=== PATIENT | female | born 1960 | race Caucasian/White ===

== ENCOUNTER 2021-08-08 11:21 | Outpatient (REF) | payer MEDICAID, SELFPAY ==
[2021-08-08 13:49] LABS: MANUAL DIFF FLAG NO
[2021-08-08 13:51] LABS: Basophils Absolute Auto 0.1 X10*3/uL (0.0-0.2); Basophils Percent Auto 0.7 % (0-2); Eosinophils Absolute Auto 0.1 X10*3/uL (0.0-0.4); Eosinophils Percent Auto 1.7 % (0-4); Hematocrit 36.9 % (37.0-47.0); Hemoglobin 12.3 g/dl (12.0-16.0); Imm Gran Abs Auto 0.03 X10*3/uL (0.00-0.03); Imm Gran Pct Auto 0.4 % (0.0-0.4); Lymphocytes Absolute Auto 3.3 X10*3/uL (1.2-4.9); Lymphocytes Percent Auto 39.9 % (20-40); Mean Corpuscular HGB Conc 33.3 g/dl (31.0-35.0); Mean Corpuscular Hemoglobin 34.1 pg (27.0-33.0); Mean Corpuscular Volume 102.2 fL (80.0-98.0); Mean Platelet Volume 9.4 fL (9.4-12.3); Monocytes Absolute Auto 0.5 X10*3/uL (0.1-1.2); Monocytes Percent Auto 6.3 % (2-11); Neutrophils Absolute Auto 4.2 x10*3/uL (2.0-8.3); Platelet Count 405 X10*3/uL (160-400); Red Blood Count 3.61 X10*6/uL (4.20-5.50); Red Cell Distribution Width 13.1 % (11.0-16.0); White Blood Count 8.3 X10*3/uL (4.8-10.8)
[2021-08-08 14:36] LABS: Erythrocyte Sedimentation Rate 4 MM/HR (0-20)
[2021-08-08 14:48] LABS: Alanine Aminotransferase 19 U/L (0-31); Albumin Level 4.4 g/dL (3.5-5.0); Alkaline Phosphatase 48 U/L (39-117); Anion Gap 12 (12-20); Aspartate Amino Transferase 19 U/L (5-31); Bilirubin Total 0.3 mg/dL (0.0-1.0); Blood Urea Nitrogen 12 mg/dL (9-16); C Reactive Protein 0.07 mg/dL (< or = 0.50); Calcium 9.6 mg/dL (8.4-10.2); Carbon Dioxide 25 mmol/L (22-29); Chloride 106 mmol/L (96-108); Estimated Glomerular Filt Rate > 60; Glucose Random 84 mg/dL (60-115); Potassium 4.9 mmol/L (3.3-5.1); Sodium 138 mmol/L (135-145); Total Protein 7.1 g/dL (6.5-8.0)
[2021-08-08 14:58] LABS: Rheumatoid Factor < 15.0 IU/mL (<15.0)
[2021-08-08 15:11] LABS: Ferritin 113 ng/mL (10-250); Vitamin D 25-OH Total 46.4 ng/mL (>30)
[2021-08-08 15:16] LABS: Folate 15.7 ng/mL (> or = 4.0); Vitamin B12 1418 pg/mL (200-900)
[2021-08-10 12:41] LABS: Anti Nuclear Antibody Screen NEGATIVE (NEGATIVE)
[2021-08-10 16:36] LABS: Gliadin Deamidated IgA Ab <1.0 U/mL; Gliadin Deamidated IgG Ab <1.0 U/mL; Transglutaminase Ab IgG <1.0 U/mL; Transglutaminase IgA <1.0 U/mL
[2021-08-11 11:46] LABS: IgA 212 mg/dL (70-320); IgG 1056 mg/dL (600-1540); IgM 70 mg/dL (50-300)
[2021-08-11 17:02] LABS: Vitamin C 1.3 mg/dL (0.3-2.7)
[2021-08-12 00:01] LABS: Zinc 82 mcg/dL (60-130)
[2021-08-12 11:36] LABS: Nicotinamide 60 ng/mL; Vit B3 - Nicotinic Acid <20 ng/mL
[2021-08-12 13:17] LABS: Vitamin B6 43.6 ng/mL (2.1-21.7)
[2021-08-15 12:36] LABS: Vitamin K1 302 pg/mL (130-1500)
[2021-08-15 17:42] LABS: Histamine Plasma <1.5 ng/mL (< OR = 1.8)
[2021-08-16 18:01] LABS: Alpha-Tocopherol 13.7 mg/L (5.7-19.9); Beta-Gamma Tocopherol <1.0 mg/L (<=4.3); Vitamin A 62 mcg/dL (38-98)
== END 2021-08-08 11:22 | disposition home or self-care (01) ==
LOC: HO.LAB 11:21
PROVIDERS: PCP Nurse Practitioner; Visit Provider Internal Medicine Gastroenterology
DX: K56.609 Unspecified intestinal obstruction, unspecified as to partial versus complete obstruction (principal); M12.9 Arthropathy, unspecified; G89.29 Other chronic pain; R10.33 Periumbilical pain; R79.82 Elevated C-reactive protein (CRP); K75.81 Nonalcoholic steatohepatitis (NASH)
CPT/HCPCS: 36415; 80053; 82180; 82306; 82607; 82728; 82746; 82784; 83088; 83516; 83520; 84207; 84446; 84590; 84591; 84597; 84630; 85025; 85652; 86003; 86038; 86039; 86140; 86200; 86431; 99202

== ENCOUNTER 2021-08-09 09:06 | Outpatient (REF) | payer MEDICAID, SELFPAY ==
[2021-08-11 14:36] LABS: Cyclic Citrullinated Peptide <16 UNITS
[2021-08-16 15:06] LABS: Vitamin B5 (Pantothenic Acid) <40 ng/mL (<275)
== END 2021-08-09 09:07 | disposition home or self-care (01) ==
LOC: HO.LAB 09:06
PROVIDERS: Internal Medicine Gastroenterology; PCP Nurse Practitioner; Visit Provider Dentist Pediatric Dentistry
DX: K56.609 Unspecified intestinal obstruction, unspecified as to partial versus complete obstruction (principal); M12.9 Arthropathy, unspecified
CPT/HCPCS: 36415; 83520; 83993; 84591; 86200

== ENCOUNTER 2021-09-20 09:09 | Outpatient (REF) | payer MEDICAID, SELFPAY ==
--- NOTE | ~2021-09-20 | MR_ITS ---
EXAMINATION: MR PELVIS WITHOUT AND WITH CONTRAST MR ABDOMEN WITHOUT AND WITH CONTRAST CLINICAL INFORMATION: Unspecified intestinal obstruction. Abdominal pain. COMPARISON: Previous CT of the abdomen and pelvis January 2018. TECHNIQUE: Sagittal axial and coronal sequences through the abdomen and pelvis with and without IV contrast and following 1.5 L oral Breeza contrast. Patient received 5 mL intravenous gadolinium. FINDINGS: There is stool throughout the colon and mild dilatation of the colon down to the rectum suggestive of cysts severe constipation. No abnormal wall thickening or mass is seen. The appendix is not identified. The small bowel is unremarkable. The stomach is unremarkable. The lung bases are clear. The liver is normal in signal. The liver appears slightly enlarged. There are too small subcentimeter lesion in the right lobe of the liver. These are not seen on all sequences and difficult to characterize. These probably represent small cysts or hemangiomas. These appear similar to CT scan from 2018. This is similar to previous CT from 2018. There is a single artifact seen adjacent to the inferior left lobe of the liver near the falciform ligament. When compared with previous CT, this is likely related to signal artifact from surgical clip or coil. No other focal liver lesion is seen. The gallbladder is normal. There is no intra or extrahepatic biliary duct dilatation. The pancreas is normal. The spleen appears to have been removed. There is a small left upper quadrant splenule measuring 2 cm. The adrenal glands are unremarkable. There are multiple bilateral renal cysts. There are several complex cysts that are high signal on T1 weighted sequences probably representing complex cysts. Largest cyst measures 1 cm in the upper pole of the left kidney. No renal mass. No hydronephrosis. The bladder is not optimally distended. There are several uterine fibroids. The largest measures 2.5 x 3 cm in the right uterine body. The uterus and adnexa otherwise appear unremarkable. There is a pessary in the pelvis. No ascites or adenopathy is seen. Vascular structures are normal. No hernia is seen. There are degenerative changes of the spine. MR/MR abdomen wo/w con IMPRESSION: Distended colon and stool throughout the colon suggestive of constipation. The colon is dilated down to the rectum. No wall thickening or mass is seen. Pessary in the pelvis. Uterine fibroids. Multiple small renal cysts. Some appear to represent complex cysts. Probable small cysts or hemangiomas in the right lobe of the liver. This is similar to January 2018 exam.
== END 2021-09-20 09:10 | disposition home or self-care (01) ==
LOC: HO.MRI 09:09
PROVIDERS: Visit Provider Internal Medicine Gastroenterology
DX: K56.609 Unspecified intestinal obstruction, unspecified as to partial versus complete obstruction (principal); Q61.02 Congenital multiple renal cysts; D25.9 Leiomyoma of uterus, unspecified; Z96.0 Presence of urogenital implants
CPT/HCPCS: 72197; 74183; A9585

== ENCOUNTER 2021-12-08 08:26 | Outpatient (REF) | payer MEDICAID, SELFPAY ==
--- NOTE | ~2021-12-08 | US_ITS ---
EXAMINATION: US RETROPERITONEAL LIMITED (RENAL ONLY) CLINICAL INFORMATION: Cyst of kidney, complex on MRI. COMPARISON: MRI abdomen 09/20/2021. CT abdomen and pelvis 01/23/2018. TECHNIQUE: Real-time imaging of the kidneys. FINDINGS: RIGHT KIDNEY: 9.7 x 3.4 x 5.6 cm (SAG x AP x TRV). The kidney is normal in size, contour, and echogenicity. Renal cortical thickness is normal. No renal calculi or hydronephrosis. Multiple cysts redemonstrated, some with associated small amount of mural calcification. Largest cyst measures 1.0 cm in the mid pole. No solid masses. LEFT KIDNEY: 10.0 x 6.0 x 5.0 cm (SAG x AP x TRV). The kidney is normal in size, contour, and echogenicity. Renal cortical thickness is normal. No renal calculi or hydronephrosis. Multiple cysts redemonstrated, some with associated small amount of mural calcification. Largest cyst measures 1.4 cm in the mid pole. There is a heterogeneously hypoechoic structure within the midpole measuring 1.2 cm No solid masses. US/US renal BI IMPRESSION: * Multiple bilateral cysts containing mural calcification measuring up to 1.0 cm on the right and 1.4 cm on the left. * Complicated cyst measuring 1.2 cm within the left midpole. * These cysts correspond to nonenhancing structures seen on the previous MRI. * No solid masses.
== END 2021-12-08 08:27 | disposition home or self-care (01) ==
LOC: HO.US 08:26
PROVIDERS: Visit Provider Internal Medicine Gastroenterology
DX: N28.1 Cyst of kidney, acquired (principal)
CPT/HCPCS: 76775

== ENCOUNTER → 2021-12-12 08:37 | Outpatient (BNVA) | payer MEDICAID, SELFPAY | PROVIDERS: PCP Nurse Practitioner; Visit Provider Internal Medicine Gastroenterology | DX: Z13.89 Encounter for screening for other disorder (principal) ==

== ENCOUNTER 2022-10-05 11:28 | Day surgery (SDC) | payer MEDICAID, SELFPAY ==
[2022-10-05] MEDS: Lactated Ringers 1,000 ML 50 ML IVCONT (11:38)
[2022-10-05 12:02] VITALS: BP 138/83; PULSE 78; RESP 18; TEMP 36.8; O2SAT 98
--- NOTE | 2022-10-05 12:11 | HO.ANESPROP2 ---
HPI - Anesthesia Eval Consult details Narrative: 62 F for EGD and colonoscopy DJD , tremors PMFSH Active Problems Active Problems: All Active Problems (Updated 10/02/22 @ 09:06 by Licha Fisher RN) Arthropathy (Acute) Kidney cysts (Acute) Small bowel obstruction (Acute) Past Medical History Medical History Adenomatous colon polyp Carpal tunnel syndrome Cervical spondylolysis Depressive disorder Edema Hyperthyroidism Neck pain Pelvic floor dysfunction Renal cyst Small bowel obstruction Tinnitus Tremor Unspecified intestinal obstruction, unspecified as to partial versus complete obstruction Vaginal dryness Functional capacity: independent ambulation Family History Family History Mother Muscular degeneration Skin cancer Thyroid cancer Aneurysm Sister HTN (hypertension) Thyroid disease Father Endocarditis Malignant carcinoid tumor of lung Family history of problems with anesthesia: No Surgical History Surgical History H/O abdominal surgery H/O splenectomy History of carpal tunnel surgery Hx of appendectomy Hx of colonoscopy History of Problems with Anesthesia: No Social History Social History Patient Tobacco Use Status: Never used Tobacco Meds Allergies Allergy/AdvReac Type Severity Reaction Status Date / Time codeine Allergy Mild anxiety, Verified 10/05/22 11:38 itch propoxyphene [From Darvon] Allergy Mild Itching Verified 10/05/22 11:38 Benadryl Allergy Mild anxiety, Uncoded 10/05/22 11:38 itch Active Medications: Current Medications Lactated Ringer's (Lr) 1,000 mls @ 50 mls/hr IVCONT .Q20H JAI Last Admin: 10/05/22 11:38 Dose: 50 mls/hr Home Medications Medication Instructions Recorded Confirmed Last Taken Type butalbital 50 mg-acetaminophen 325 1 cap PO Q4H PRN Migraine Headache 08/04/21 10/02/22 Unknown History mg-caffeine 40 mg-codeine 30 mg cap calcium carbonate 600 mg calcium 600 mg PO DAILY 08/04/21 10/02/22 Unknown History (1,500 mg) tablet cyanocobalamin (vitamin B-12) 5,000 mcg PO DAILY 08/04/21 10/02/22 Unknown History 5,000 mcg capsule estradiol 10 mcg vaginal tablet 10 mcg vaginal 4XW 08/04/21 10/02/22 Unknown History (Yuvafem) famotidine 20 mg tablet 20 mg PO BID 08/04/21 10/02/22 Unknown History fexofenadine 180 mg tablet 180 mg PO DAILY 08/04/21 10/02/22 Unknown History (Akila Allergy) indomethacin 50 mg capsule 50 mg PO BID 08/04/21 10/02/22 Unknown History levothyroxine 75 mcg capsule 75 mcg PO DAILY 08/04/21 10/02/22 Unknown History montelukast 10 mg tablet 10 mg PO DAILY 08/04/21 10/02/22 Unknown History omega-3 fatty acids 1,000 mg 1,000 mg PO DAILY 08/04/21 Unknown History capsule (Fish Oil Concentrate) quetiapine 50 mg tablet 50 mg PO BEDTIME 08/04/21 10/02/22 Unknown History clonazepam 0.5 mg tablet 3 mg PO TID 08/08/21 10/02/22 Unknown History oxycodone-acetaminophen 5 mg-325 1 tab PO Q4H PRN Pain 08/08/21 10/02/22 10/05/22 History mg tablet bupropion HCl 300 mg 24 hr tablet, 300 mg PO QAM 12/12/21 10/02/22 10/05/22 History extended release modafinil 200 mg tablet 200 mg PO DAILY 10/02/22 10/02/22 Unknown History Exam Exam Date and Time: October 05, 2022 121 Height,Weight and Vital Signs: Height 5 ft 4 in Weight 53.07 kg Last Vital Signs Temp 98.3 F 10/05/22 12:02 Pulse 78 10/05/22 12:02 Resp 18 10/05/22 12:02 BP 138/83 10/05/22 12:02 Pulse Ox 98 10/05/22 12:02 O2 Del Method 10/05/22 12:02 Airway Mallampati Class: III TM Dist: >3cm Neck ROM: Full Loose/Missing/Broken Teeth: Yes Heart: S1,S2 Lungs: b/l breath sounds Assessment and Plan Assessment Anesthesia Assessment: Anesthesia Plan Discussed and Chart Reviewed Final Anesthetic Review Family History of Problems with Anesthesia: No History of Problems with Anesthesia: No NPO: Yes ASA Class: II Final Preanesthetic Review: Meds/Allgs Chart Reviewed, Consent Obtained/Reviewed and Anes Risks/Benef Reviewed Patient Risk: Intermediate Procedure Risk: Intermediate Anesthetic Plan Anesthetic Plan: MAC: Disposition: Standard PACU
--- NOTE | 2022-10-05 12:16 | MHC.SHP ---
Pre-Procedural Eval Section A Date of Service: 10/05/22 Section B Chief Complaint: anemia Relevant Family History (Specify if Yes): No Relevant Social History: None Present Medications: see Short Stay Collaborative assessment Medical History: Significant History (Adenomatous colon polyp Carpal tunnel syndrome Cervical spondylolysis Depressive disorder Edema Hyperthyroidism Neck pain Pelvic floor dysfunction Renal cyst Small bowel obstruction Tinnitus Tremor Unspecified intestinal obstruction, unspecified as to partial versus complete obstruction Vaginal dryn) History of Previous Operations: Relevant previous surgery/procedure and date(s) (H/O abdominal surgery H/O splenectomy History of carpal tunnel surgery Hx of appendectomy Hx of colonoscopy) Allergies: Allergies Allergy/AdvReac Type Severity Reaction Status Date / Time codeine Allergy Mild anxiety, Verified 10/05/22 11:38 itch propoxyphene [From Darvon] Allergy Mild Itching Verified 10/05/22 11:38 Benadryl Allergy Mild anxiety, Uncoded 10/05/22 11:38 itch Review of Systems Sugical H&P ROS: Negative: Constitution, Cardiovascular, Respiratory, Neurological, Psychiatric, Hem-Onc, Allergic/Immunologic, Gastrointestinal, Genitourinary, Musculoskeletal, Integumentary, Endocrine and Eyes/Ears/Nose/Throat Exam Surgical H&P Exam: Normal: HEENT, Normal: Heart, Normal: Lungs, Normal: Extremities, Normal: Abdomen, Normal: Skin and Normal: Neurological Plan Diagnosis/Plan: Unchanged I have reviewed the history and physical and performed a pertinent physical examination on my patient. No changes have occurred unless specified. Time Spent With Patient Time: Total time managing care of this patient today ____ minutes.
--- NOTE | 2022-10-05 12:17 | W.PM.OPN ---
Operative Note Operative Note Date of Service: 10/05/22 Narrative: Operative Information Procedure Description: EGD, Colonoscopy Indication: anemia Anesthesia: MAC FLEXIBLE TRANSORAL UPPER GASTROINTESTINAL ENDOSCOPY AND COLONOSCOPY PROCEDURE NOTE UPPER ENDOSCOPY Consent: Indications for the procedure and potential complications of bleeding, perforation, reaction to medications and missed diagnosis were discussed with the patient and informed consent was obtained. Instrument: Olympus GIF H 190 J mid size upper endoscope Monitoring: Vital signs and clinical assessment, continuous EKG monitoring, Pulse oximetry, Carbon Dioxide monitoring and blood pressure monitoring were done throughout the procedure. Procedure: The patient was placed in the left lateral decubitis position and pre-procedure medications were administered and a bite block was placed. The endoscope was inserted into the mouth and advanced under direct vision to the third part of duodenum. A careful inspection was made as the upper endoscope was withdrawn including a retroflexed examination of the proximal stomach; Findings and interventions are described below. Findings: Larynx:normal Esophagus: GE junction at 40 cm, diaphragm hiatus at 40 cm, esophagitis noted with patchy salmon pink areas, bx taken for r/o barretts. Also LES was lax. Stomach: Patchy gastritis with flecks of blood in stomach. Biopsies were obtained. Grade 2 flap valve on retroflexed examination of the cardia. Duodenum: Normal bulb and descending duodenum, bx taken Intervention: Biopsies as noted above COLONOSCOPY Instrument: Olympus variable stiffness pediatric scope 190L Colonoscopy Monitoring: Vital signs and clinical assessment, continuous EKG monitoring, Pulse oximetry, Carbon Dioxide monitoring and blood pressure monitoring were done throughout the procedure. Colon withdrawal time was 11 minutes. Procedure: The patient was placed in the left lateral decubitis position and pre-procedure medications were administered. After a digital rectal examination of the ano-rectum, the video colonoscope was inserted into the rectum and advanced through the colon to the cecum/TI. The colonoscope was slowly withdrawn in a retrograde panoramic fashion and the colon mucosa was carefully examined including a retroflexed view of the rectum. Findings and interventions are described below. Procedure Difficulty:moderate due to redundant tortuous colon Findings: Terminal Ileum-normal, bx taken random colon bx taken Cecum:normal Ascending Colon: normal Transverse Colon -normal Descending Colon:normal Sigmoid Colon: small scattered diverticula noted Rectum: Retroflexion with small internal hemorrhoids, grade I Anorectum - normal Colon preparation: [place] Bowel Preparation Scale Right colon; 3 Transverse colon: 3 Left colon; 3 (0 = Unprepared colon segment with mucosa not seen due to solid stool that cannot be cleared. 1 = Portion of mucosa of the colon segment seen, but other areas of the colon segment not well seen due to staining, residual stool and/or opaque liquid. 2 = Minor amount of residual staining, small fragments of stool and/or opaque liquid, but mucosa of colon segment seen well. 3 = Entire mucosa of colon segment seen well with no residual staining, small fragments of stool or opaque liquid) Impression and Post Procedure Diagnosis: Endoscopy Findings: esophagitis lax LES possible barretts gastritis Colonoscopy Findings: internal hemorrhoids diverticular disease redundant, tortuous colon Plan: Await Pathology results Repeat Colonoscopy in 10 years or earlier if clinically indicated High fiber diet leaflet avoid straining at stool, epsom salts and sitz bath, anusol supps or cream GERD precautions if EGD pos for barretts then repeat EGD in 3-5 yrs Above findings were reviewed with the patient and relevant handouts were provided if indicated.
[2022-10-05 13:23] VITALS: BP 129/66; PULSE 90; RESP 12; TEMP 36.3; O2SAT 98
[2022-10-05 13:38] VITALS: BP 128/78; PULSE 78; RESP 16; O2SAT 98
[2022-10-05 13:53] VITALS: BP 142/75; PULSE 82; RESP 18; TEMP 36.7; O2SAT 100
[2022-10-05 14:08] VITALS: BP 134/73; PULSE 79; RESP 20; TEMP 37; O2SAT 100
== END 2022-10-05 14:46 ==
LOC: HO.SSS 11:28
PROVIDERS: PCP Nurse Practitioner; Visit Provider Internal Medicine Gastroenterology
PROC: (CPT 45380; principal; 2022-10-05 12:40)
DX: D64.9 Anemia, unspecified (principal); Z86.010 Personal history of colon polyps; K57.30 Diverticulosis of large intestine without perforation or abscess without bleeding; K64.0 First degree hemorrhoids; K56.609 Unspecified intestinal obstruction, unspecified as to partial versus complete obstruction; K59.00 Constipation, unspecified; Q43.8 Other specified congenital malformations of intestine; K29.51 Unspecified chronic gastritis with bleeding; K20.80 Other esophagitis without bleeding; K22.4 Dyskinesia of esophagus; K44.9 Diaphragmatic hernia without obstruction or gangrene; N28.1 Cyst of kidney, acquired; E05.90 Thyrotoxicosis, unspecified without thyrotoxic crisis or storm; D75.89 Other specified diseases of blood and blood-forming organs; R60.9 Edema, unspecified; Z90.81 Acquired absence of spleen; F32.A Depression, unspecified; R25.1 Tremor, unspecified; Z79.899 Other long term (current) drug therapy; Z88.8 Allergy status to other drugs, medicaments and biological substances; Z98.890 Other specified postprocedural states
CPT/HCPCS: 45380; 43239; 88305; 88313; 88341; 88342

== ENCOUNTER → 2022-10-20 10:08 | Outpatient (BNVA) | payer MEDICAID, SELFPAY | PROVIDERS: PCP Nurse Practitioner; Visit Provider Internal Medicine Gastroenterology | DX: R79.82 Elevated C-reactive protein (CRP) (principal); M12.9 Arthropathy, unspecified | CPT/HCPCS: 99212 ==

== ENCOUNTER 2023-03-12 08:18 | Outpatient (AMB) | payer MEDICAID, SELFPAY ==
--- NOTE | 2023-03-12 08:22 | A.OFFVIS_ITS ---
Intake Vital Signs 03/12/23 08:23 Height 5 ft 4 in Weight 114 lb 13.773 oz BMI 19.7 BP 130/74 Blood Pressure Location Rt brachial Position Sitting Pulse 82 Pulse Source Pulse Oximeter Temp 97.4 F Pulse Oximetry (%) 98 Intake Visit Reasons: Arthrophy ? RA Intake Note: * New pt presents today for consult. * States she saw Rheum for the first time in 2006 in [place]. She has no records, and states there was nothing significant * Today she has labs done recently at [facility], to discuss with MD. 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 She thinks for about 25 years she has had intermittent aches and pains throughout her body. These seemingly have worsened in the last year with some deformities in the hands and pain in the toes. She has a history of Hodgkin's disease treated 25 years ago or so with MOPP chemotherapy. 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 There has been no recurrence since then. She is on 8 Percocet a day, she has sometime able to get down to 6 a day. Mostly she takes the Percocet for back pain. Others areas of pain include the neck, thumbs, knuckles, knees, and feet. She notes her right 3rd toe is particularly painful over the past 3 months. She has a history of recurrent small-bowel obstructions so hesitates to take any NSAIDs. In the past indomethacin caused GI problems. She has had repeated problems with the small bowel obstruction, somewhat better recently with the addition of Movantik to her regimen. She has tried some topical agents, she thinks maybe diclofenac gel was helpful but she was worried about it interfering with her GI problems. She may also have lost coverage she says on her insurance. [facility], [facility] Medical History (Updated 03/12/23 @ 09:31 by Emir Mittal MD) Adenomatous colon polyp Carpal tunnel syndrome Cervical spondylolysis Depressive disorder Edema Hyperthyroidism Neck pain Pelvic floor dysfunction Renal cyst Small bowel obstruction Tinnitus Tremor Unspecified intestinal obstruction, unspecified as to partial versus complete obstruction Vaginal dryness Surgical History H/O abdominal surgery H/O splenectomy History of carpal tunnel surgery History of esophagogastroduodenoscopy (EGD) Hx of appendectomy Hx of colonoscopy Family History Mother Muscular degeneration Skin cancer Thyroid cancer Aneurysm Sister HTN (hypertension) Thyroid disease Father Endocarditis Malignant carcinoid tumor of lung Social History (Updated 03/12/23 @ 08:30 by BULMARO Garcia) Household Members: None Alcohol intake: current Alcohol intake frequency: holidays/special occasions only Patient Tobacco Use Status: Former Tobacco user Current occupational status: employed 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 Negative for appetite change, weight change, fever, chills, malaise Eyes Details: Some ocular dryness, uses some [id number] eyedrops. Negative for vision change, dry eyes,headaches and dizziness ENT Details: Some oral dryness. Occasional tinnitus. Negative for hearing change, tinnitus, oral ulcer, nose bleeds. Card Details: Negative chest pain, edema and syncope Resp Details: Negative for SOB, cough and wheezing GI Details: History of recurrent small-bowel obstructions. Presently negative for indigestion/heartburn, nausea, abdominal pain, bowel changes, diarrhea, constipation and bloody stool. Details: Negative for dysuria, hematuria, nocturia, decreased force/flow and genital discharge Skin/Breast Details: For about a year she does note some blanching of the fingertips when she is cold. No fingertip ulcerations. Negative for itching, rash, hives,, sun sensitivity, and skin cancer Neuro Details: Negative for epilepsy, palsy, stroke, changes in speech, tingling and weakness Psych Details: On meds for PTSD; symptoms seem stable with current treatment. Endo Details: Negative for polyuria and polydypsia Javy/Lymph Details: Distant history of treatment for Hodgkin's lymphoma MOPP. Negative for excessive bruising or bleeding. Physical Exam Vital Signs: Last Vital Signs Temp 97.4 F 03/12/23 08:23 Pulse 82 03/12/23 08:23 BP 130/74 03/12/23 08:23 Pulse Ox 98 03/12/23 08:23 BMI result Body Mass Index 19.7 APPEARANCE: Patient in no acute distress EYES no redness, pupils equal and reactive to light, eyelids normal EARS: External ear normal, canal clear and tympanic membrane normal. NOSE/SINUS: Airflow through both nares, no nasal discharge, no bleeding THROAT: Oral mucosa moist, no ulcerations NECK: No thyromegaly or masses, no adenopathy, trachea midline. HEART: Regulrar rhythm, S1-S2 heard, no murmurs, rubs or gallops. LUNG: Clear to percussion and auscultation ABD: Normal bowel sounds, no organomegaly, masses or tenderness. EXTREMITIES: No edema, no calf tenderness, normal peripheral pulses. NEURO: Oriented and alert x3. No focal weakness. Reflexes symmetric. Gait normal. SKIN: No inflammatory or neoplastic lesions. Normal color and turgor JOINT EXAM:?? Cervical Spine:.? Lateral flexion limited at 10 degrees and rotation limited at 30 degrees with some stiffness and pain. No tenderness. Thoracic Spine:.? No scoliosis.? No tenderness on palpation. Lumbar Spine:.? Alignment normal.? Full range of motion with mild pain at the extremes. No tenderness. Chest Wall:.? No tenderness, swelling, increased warmth or erythema. Hands she right: There is moderate bony enlargement with slight tenderness at the base of the thumb. There is some soft tissue swelling and tenderness at the 2nd MCP joint. There is bony enlargement of the 2nd through 5th PIP joints, the 3rd and 4th are slightly tender. The 5th there is more marked tenderness but it is not red or warm. The PIP's not really have any soft tissue swelling. All the DIP's have bony enlargement and the 2nd 5th are mildly tender. There is some thenar atrophy but no sensory loss. Left: Moderate bony enlargement and mild tenderness at the base of the thumb. There is no tenderness or swelling in the MCP joints. There is mild bony enlargement at the thumb IP and 2nd PIP joint, the 2nd PIP has mild tenderness. There is mild bony enlargement and flexion deformity at the 2nd through 5th D IP joints, the 2nd 3rd have mild tenderness. There is some thenar atrophy but no sensory loss. Wrists:.? Normal pain-free range of motion without tenderness, swelling, increased warmth or erythema. Elbows:. Normal pain-free range of motion without tenderness, swelling, increased warmth or erythema. Shoulders:.?? Full range of motion without pain. No tenderness, weakness, swelling, increased warmth or erythema. Hips:.? Right: Slight lateral and anterior pain with extremes of internal rotation. External rotation and abduction seem normal. There is also some lower back pain with extremes of rotation. Left: Some lumbar pain with extremes of normal internal or external rotation. No groin pain with motion. Hip bursa: Mild trochanteric tenderness. Knees:.?? Normal pain-free range of motion with mild patellofemoral crepitus. No effusion, tenderness, swelling, increased warmth or erythema.? Ankles:.? Normal pain-free range of motion without tenderness, swelling, increased warmth or erythema. Feet: Right: There is some nontender bony enlargement in the medial instep. The 1st MTP has mild bony enlargement, slight hallux valgus deformity and slight tenderness. The 3rd and 4th toes have hammertoe deformities. The 3rd has some redness, thickening and mild tenderness. There is no break in the skin. There is no sensory loss in the foot. Left: Mild 1st MTP bony enlargement, hallux valgus deformity and tenderness. The rest the foot has no tenderness or swelling. No sensory loss or breaks in the skin noted. Tender points:.? Mild tenderness to digital palpation at the trapezius, second rib, knees, greater trochanter al area bilaterally. ? Results Reviewed Results Reviewed: Laboratory Tests 08/08/21 08/08/21 13:46 13:46 Hgb 12.3 AST 19 ALT 19 C-Reactive Protein 0.24 October 2022 lab work from [facility]: Rheumatoid factor positive, question titer; SHWETA negative; ESR 0,; CRP 0.7, transaminases normal, CBC normal, TSH 0.36 Assessment & Plan Assessment & Plan (1) Multiple joint pain: Code(s): M25.50 - Pain in unspecified joint (2) History of Hodgkin's granuloma: Comment: MOPP in 1964 Code(s): Z85.71 - Personal history of Hodgkin lymphoma (3) Rheumatoid factor positive: Code(s): R76.8 - Other specified abnormal immunological findings in serum (4) Osteoarthritis of hands, bilateral: Code(s): M19.041 - Primary osteoarthritis, right hand; M19.042 - Primary osteoarthritis, left hand (5) Osteoarthritis of foot: Code(s): M19.079 - Primary osteoarthritis, unspecified ankle and foot Plan The patient has many years of widespread pains that she seemed to tolerate. The exception of that was the back pain which required Percocet for pain control and now she is on 8 tablets a day. In the last year she has noted change in her symptoms with more deformity in the hands and some pain in the toes. She has a number of tender points. The only questionably swollen joint I can see today is the right 2nd MCP. Right 3rd toe might have been injured. She did have a history of Hodgkin's disease treated with chemotherapy 25 years ago. It is possible some of the chemotherapy agents might cause some neuropathy but her pains really suggest more fibromyalgia and osteoarthritis at this point. I will recheck the rheumatoid factor to see if we can get a titer on that. Also CCP antibody, repeat acute phase reactants, and hand and foot films are ordered. I think she could safely add back the diclofenac gel. Oral NSAIDs would be problematic. She is aware that the narcotics may be contributing somewhat to her motility problems. I will review the data and let her know the fingings. I will also decide on follow-up that point but likely it will be a recommendation for return in 6-9 months to see if findings progressing in the hands that would look inflammatory in etiology. Orders: Orders XR foot LT min 3V Today M19.079 - Primary osteoarthritis, unspecified ankle and foot XR foot RT min 3V Today M79.671 - Pain in right foot, M79.672 - Pain in left foot XR hand LT min 3V Today M19.041 - Primary osteoarthritis, right hand, M19.042 - Primary osteoarthritis, left hand, R76.8 - Other specified abnormal immunological findings in serum XR hand RT min 3V Today M19.041 - Primary osteoarthritis, right hand, M19.042 - Primary osteoarthritis, left hand, R76.8 - Other specified abnormal immunological findings in serum Cyclic Citrullinated Peptide Today M19.041 - Primary osteoarthritis, right hand, M19.042 - Primary osteoarthritis, left hand, R76.8 - Other specified abnormal immunological findings in serum C Reactive Protein Today M19.041 - Primary osteoarthritis, right hand, M19.042 - Primary osteoarthritis, left hand, R76.8 - Other specified abnormal immunological findings in serum Rheumatoid Factor Today M19.041 - Primary osteoarthritis, right hand, M19.042 - Primary osteoarthritis, left hand, R76.8 - Other specified abnormal immunological findings in serum Erythrocyte Sedimentation Rate Today M19.041 - Primary osteoarthritis, right hand, M19.042 - Primary osteoarthritis, left hand, R76.8 - Other specified abnormal immunological findings in serum Sjogren's Antibodies Today M12.9 - Arthropathy, unspecified, R76.8 - Other specified abnormal immunological findings in serum Coding Level of Care Code New Pt Level 3 (81691) Diagnoses Multiple joint pain M25.50 History of Hodgkin's granuloma Z85.71 Rheumatoid factor positive R76.8 Osteoarthritis of hands, bilateral M19.041; M19.042 Osteoarthritis of foot M19.079
[2023-03-12 08:23] VITALS: BP 130/74; PULSE 82; TEMP 36.3; O2SAT 98; BMI 19.7
== END 2023-03-12 09:39 | disposition home or self-care (01) ==
PROVIDERS: PCP Nurse Practitioner; Referring Provider Nurse Practitioner; Visit Provider Internal Medicine Rheumatology
DX: M25.50 Pain in unspecified joint (principal); Z85.71 Personal history of Hodgkin lymphoma; R76.8 Other specified abnormal immunological findings in serum; M19.041 Primary osteoarthritis, right hand; M19.042 Primary osteoarthritis, left hand; M19.079 Primary osteoarthritis, unspecified ankle and foot
CPT/HCPCS: 99203

== ENCOUNTER → 2023-03-12 08:18 | Outpatient (BNVA) | payer MEDICAID, SELFPAY | PROVIDERS: PCP Nurse Practitioner; Visit Provider Internal Medicine Rheumatology | DX: M25.50 Pain in unspecified joint (principal); M19.041 Primary osteoarthritis, right hand; M19.042 Primary osteoarthritis, left hand; M19.079 Primary osteoarthritis, unspecified ankle and foot; R76.8 Other specified abnormal immunological findings in serum; Z85.71 Personal history of Hodgkin lymphoma | CPT/HCPCS: 99202 ==

== ENCOUNTER 2023-03-13 07:36 | Outpatient (REF) | payer MEDICAID, SELFPAY ==
--- NOTE | ~2023-03-13 | XR_ITS ---
EXAMINATION: XR FOOT, BILATERAL XR HAND, BILATERAL CLINICAL INDICATION: Primary osteoarthritis. COMPARISON: None available. TECHNIQUE: 3 views each foot and 3 views each hand. FINDINGS: BILATERAL FOOT: There is no visible fracture, dislocation or subluxation. The joint spaces are maintained. No bony erosive changes or osteophytes. The soft tissues are normal. The ankle mortise and subtalar joints are normal. RIGHT HAND: There is mild loss of PIP and DIP joint spaces with periarticular spurring PIP joint 1st digit and DIP joint 3rd, 4th, and 5th digits. There is mild flexion deformity DIP joint 3rd digit. The MCP joints are preserved. There is loss of 1st carpometacarpal joint with periarticular spurring. No acute fracture or osteoporosis seen. LEFT HAND: Mild loss of PIP and DIP joints all digits is noted with mild periapical spurring. No visible acute fracture, dislocation or subluxation seen. There is moderate loss of 1st carpometacarpal joint space. The soft tissues are normal. XR/XR foot LT min 3V IMPRESSION: 1. Significant degenerative osteoarthritic changes PIP and DIP joints both hands. There is mild flexion deformity DIP joint 3rd digit right hand. 2. There is moderate loss of 1st carpometacarpal joint space both hands. 3. No abnormality seen in either foot.
--- NOTE | ~2023-03-13 | XR_ITS ---
EXAMINATION: XR FOOT, BILATERAL XR HAND, BILATERAL CLINICAL INDICATION: Primary osteoarthritis. COMPARISON: None available. TECHNIQUE: 3 views each foot and 3 views each hand. FINDINGS: BILATERAL FOOT: There is no visible fracture, dislocation or subluxation. The joint spaces are maintained. No bony erosive changes or osteophytes. The soft tissues are normal. The ankle mortise and subtalar joints are normal. RIGHT HAND: There is mild loss of PIP and DIP joint spaces with periarticular spurring PIP joint 1st digit and DIP joint 3rd, 4th, and 5th digits. There is mild flexion deformity DIP joint 3rd digit. The MCP joints are preserved. There is loss of 1st carpometacarpal joint with periarticular spurring. No acute fracture or osteoporosis seen. LEFT HAND: Mild loss of PIP and DIP joints all digits is noted with mild periapical spurring. No visible acute fracture, dislocation or subluxation seen. There is moderate loss of 1st carpometacarpal joint space. The soft tissues are normal. XR/XR foot RT min 3V IMPRESSION: 1. Significant degenerative osteoarthritic changes PIP and DIP joints both hands. There is mild flexion deformity DIP joint 3rd digit right hand. 2. There is moderate loss of 1st carpometacarpal joint space both hands. 3. No abnormality seen in either foot.
--- NOTE | ~2023-03-13 | XR_ITS ---
EXAMINATION: XR FOOT, BILATERAL XR HAND, BILATERAL CLINICAL INDICATION: Primary osteoarthritis. COMPARISON: None available. TECHNIQUE: 3 views each foot and 3 views each hand. FINDINGS: BILATERAL FOOT: There is no visible fracture, dislocation or subluxation. The joint spaces are maintained. No bony erosive changes or osteophytes. The soft tissues are normal. The ankle mortise and subtalar joints are normal. RIGHT HAND: There is mild loss of PIP and DIP joint spaces with periarticular spurring PIP joint 1st digit and DIP joint 3rd, 4th, and 5th digits. There is mild flexion deformity DIP joint 3rd digit. The MCP joints are preserved. There is loss of 1st carpometacarpal joint with periarticular spurring. No acute fracture or osteoporosis seen. LEFT HAND: Mild loss of PIP and DIP joints all digits is noted with mild periapical spurring. No visible acute fracture, dislocation or subluxation seen. There is moderate loss of 1st carpometacarpal joint space. The soft tissues are normal. XR/XR hand RT min 3V IMPRESSION: 1. Significant degenerative osteoarthritic changes PIP and DIP joints both hands. There is mild flexion deformity DIP joint 3rd digit right hand. 2. There is moderate loss of 1st carpometacarpal joint space both hands. 3. No abnormality seen in either foot.
--- NOTE | ~2023-03-13 | XR_ITS ---
EXAMINATION: XR FOOT, BILATERAL XR HAND, BILATERAL CLINICAL INDICATION: Primary osteoarthritis. COMPARISON: None available. TECHNIQUE: 3 views each foot and 3 views each hand. FINDINGS: BILATERAL FOOT: There is no visible fracture, dislocation or subluxation. The joint spaces are maintained. No bony erosive changes or osteophytes. The soft tissues are normal. The ankle mortise and subtalar joints are normal. RIGHT HAND: There is mild loss of PIP and DIP joint spaces with periarticular spurring PIP joint 1st digit and DIP joint 3rd, 4th, and 5th digits. There is mild flexion deformity DIP joint 3rd digit. The MCP joints are preserved. There is loss of 1st carpometacarpal joint with periarticular spurring. No acute fracture or osteoporosis seen. LEFT HAND: Mild loss of PIP and DIP joints all digits is noted with mild periapical spurring. No visible acute fracture, dislocation or subluxation seen. There is moderate loss of 1st carpometacarpal joint space. The soft tissues are normal. XR/XR hand LT min 3V IMPRESSION: 1. Significant degenerative osteoarthritic changes PIP and DIP joints both hands. There is mild flexion deformity DIP joint 3rd digit right hand. 2. There is moderate loss of 1st carpometacarpal joint space both hands. 3. No abnormality seen in either foot.
[2023-03-13 08:39] LABS: C Reactive Protein < 0.10 mg/dL (< or = 0.50)
[2023-03-13 08:52] LABS: Erythrocyte Sedimentation Rate 2 MM/HR (0-20)
[2023-03-13 14:50] LABS: Rheumatoid Factor < 13.0 IU/mL (<15.0)
[2023-03-15 13:29] LABS: Antibody to SS-A Antigen <1.0 NEG AI (<1.0 NEG); Antibody to SS-B Antigen <1.0 NEG AI (<1.0 NEG)
[2023-03-19 15:08] LABS: Cyclic Citrullinated Peptide <16 UNITS
== END 2023-03-13 07:37 | disposition home or self-care (01) ==
LOC: HO.LAB 07:36
PROVIDERS: PCP Nurse Practitioner; Visit Provider Internal Medicine Rheumatology
DX: R76.8 Other specified abnormal immunological findings in serum (principal); M19.041 Primary osteoarthritis, right hand; M19.042 Primary osteoarthritis, left hand; M79.671 Pain in right foot; M79.672 Pain in left foot
CPT/HCPCS: 36415; 73130; 73630; 85652; 86140; 86200; 86235; 86431

== ENCOUNTER 2023-07-20 10:04 | Outpatient (AMB) | payer SELFPAY ==
--- NOTE | 2023-07-20 10:09 | MHC.OFFVIS ---
Intake Vital Signs 07/20/23 10:10 Height 5 ft 4 in Weight 117 lb BMI 20.1 BP 108/61 Blood Pressure Location Rt brachial Position Sitting Pulse 71 Intake Visit Reasons: Follow up Intake Note: Isaura presents in the office as a follow up constipation and GERD. CC: Patient reports severe burning in her stomach and low level acid indigestion pretty constantly. She reports mild nausea, constipation, bloating and gas at night after eating. 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 Accompanied by: Self / Same As Patient Allergies codeine Allergy (Mild, Verified 07/20/23 10:14) anxiety, itch acetaminophen [From Darvocet-N] Adverse Reaction (Severe, Verified 07/20/23 10:14) Anxiety propoxyphene [From Darvocet-N] Adverse Reaction (Severe, Verified 07/20/23 10:14) Anxiety Benadryl Allergy (Mild, Uncoded 03/12/23 08:27) anxiety, itch HPI Follow up HPI Details 62 yr old f w/ hx of PTSd, hypothyroid, Hodgkins lymphoma, splenectomy being seen for f/u RECAP: She has had recurrent small bowel obstructions she had been getting more frequent attacks at least once/year, had been every 3 yrs before niya last 5 yrs ago she had surgery with insertion of film adhesion barrier Before attacks she will normally have a large bowel motion, and nausea, with seizing pain in the back and into the front Usu resolves with fluids and NGT she does have problems with constipation, she takes veg and greens in diet, miralax OD she does get bloating and distention for days to months she does take pepcid for reflux, never awful - 12/27 she takes percocet 40 mg daily she has blotchy skin and brain fog, flushing no raynauds but hands and feet always cold LABS: macrocytosis, fecal bess--borderline, B12 level was normal MRe: constipation, dilated colon down to rectum, uterine fibroids, multiple renal cysts, some complex. liver cysts US: ?Multiple bilateral cysts containing mural calcification measuring up to 1.0 cm on the right and 1.4 cm on the left. *? Complicated cyst measuring 1.2 cm within the left midpole. EGD/Colon : 09/2022 Endoscopy Findings: esophagitis lax LES possible barretts gastritis Colonoscopy Findings: internal hemorrhoids diverticular disease redundant, tortuous colon Bx: pos barretts, high mast cells in TI and colon, IgG4 <40% INTERIM: she noted worsening back in her back with wine appetite is fair weight stable gas and bloating and GERD are worse --she can have burning pain in pit of stomach she has not required admission for obstruction for 2 yrs now if she runs out of [employer] she can have severe pain, she is getting it from her PCP coming down on pain meds she stopped protonix, and only taking pepcid EXAM: GENERAL: The patient is well developed and nontoxic. VITAL SIGNS:see workflow HEENT: Nonicteric sclerae, PERRLA, EOMI. Oropharynx clear. Moist mucous membranes. Conjunctivae appear well perfused. No thyroid mass. CHEST: Chest wall is nontender. HEART: Regular rate and rhythm without murmurs. LUNGS: Clear to auscultation bilaterally. ABDOMEN: Soft, positive bowel sounds, tender epigastirec , no organomegaly.no flank tenderness SKIN: No rash, no excessive bruising, petechiae, or purpura., heberdens nodes on fingers, NEUROLOGIC: Cranial nerves II-XII intact without motor/sensory deficit. P A/P: 1/ Recurrent bowel obstrcution. Prior hx of surgeries and laparotomy. She is also on chronic opiates which is probably contributing to her sx by dysmotility. Symptoms much improved with laxative regimen including movantik, 2/ Anemia, ? due to NSAID, but on pepcid as well, stable 3/ renal cysts-- PLAN: 1/ renal US also check GB 2/ resend PPI, and shoudl restart 3/ we will also add quercetin as discussed at last visit 4/ cont with movantik as helps [facility] Medical History (Updated 07/20/23 @ 10:33 by Amie Jaems MD) Renal cyst Pelvic floor dysfunction Edema Tremor Neck pain Cervical spondylolysis Vaginal dryness Small bowel obstruction Tinnitus Carpal tunnel syndrome Depressive disorder Hyperthyroidism Adenomatous colon polyp Unspecified intestinal obstruction, unspecified as to partial versus complete obstruction Surgical History H/O abdominal surgery H/O splenectomy History of carpal tunnel surgery History of esophagogastroduodenoscopy (EGD) Hx of appendectomy Hx of colonoscopy Family History Mother Muscular degeneration Skin cancer Thyroid cancer Aneurysm Sister HTN (hypertension) Thyroid disease Father Endocarditis Malignant carcinoid tumor of lung Social History (Updated 03/12/23 @ 08:30 by BULMARO Garcia) Household Members: None Alcohol intake: current Alcohol intake frequency: holidays/special occasions only Patient Tobacco Use Status: Former Tobacco user Current occupational status: employed Current occupation: [employer] Assessment & Plan Assessment & Plan (1) Kidney cysts: Code(s): N28.1 - Cyst of kidney, acquired Plan: PLAN: 1/ renal US also check GB 2/ resend PPI, and shoudl restart 3/ we will also add quercetin as discussed at last visit 4/ cont with hanna as helps Orders: Orders US abdomen complete Today N28.1 - Cyst of kidney, acquired, R10.13 - Epigastric pain Medications: Refilled pantoprazole 20 mg PO DAILY 90 days 90 tabs 3RF Coding Level of Care Code Est Pt Level 4 (55898) Diagnoses Kidney cysts N28.1
[2023-07-20 10:10] VITALS: BP 108/61; PULSE 71; BMI 20.1
== END 2023-07-20 10:54 | disposition home or self-care (01) ==
PROVIDERS: PCP Nurse Practitioner; Visit Provider Internal Medicine Gastroenterology
DX: N28.1 Cyst of kidney, acquired (principal)
CPT/HCPCS: 99214

== ENCOUNTER → 2023-07-20 10:04 | Outpatient (BNVA) | payer OTHER, SELFPAY | PROVIDERS: PCP Nurse Practitioner; Visit Provider Internal Medicine Gastroenterology | DX: N28.1 Cyst of kidney, acquired (principal) | CPT/HCPCS: 99212 ==

== ENCOUNTER 2024-09-22 13:07 | Outpatient (AMB) | payer MEDICARE, SELFPAY ==
--- NOTE | 2024-09-22 13:15 | MHC.OFFVIS ---
Vital Signs 09/22/24 13:18 Height 5 ft 4 in Weight 117 lb BMI 20.1 BP 117/58 L Blood Pressure Location Lt brachial Position Sitting Pulse 74 Intake Visit Reasons: Obstruction, Intense Gastro pain Intake Note: Isaura presents in the office as a ED follow up. CC: She was seen at [facility] due to pains in the stomach with nausea and vomiting. Recreation Therapy Aide Required: No Allergies codeine Allergy (Mild, Verified 09/22/24 13:18) anxiety, itch diphenhydramine [From Benadryl] Allergy (Mild, Verified 09/22/24 13:19) Itchy Eyes, anxiety HPI HPI Obstruction, Intense Gastro pain: Details: 64 yr old f w/ hx of PTSd, hypothyroid, Hodgkins lymphoma, splenectomy being seen for f/u RECAP: She has had recurrent small bowel obstructions she had been getting more frequent attacks at least once/year, had been every 3 yrs before niya last 5 yrs ago she had surgery with insertion of film adhesion barrier Before attacks she will normally have a large bowel motion, and nausea, with seizing pain in the back and into the front Usu resolves with fluids and NGT she does have problems with constipation, she takes veg and greens in diet, miralax OD she does get bloating and distention for days to months she does take pepcid for reflux, never awful - 12/27 she takes percocet 40 mg daily she has blotchy skin and brain fog, flushing no raynauds but hands and feet always cold LABS: macrocytosis, fecal bess--borderline, B12 level was normal MRe: constipation, dilated colon down to rectum, uterine fibroids, multiple renal cysts, some complex. liver cysts US: ?Multiple bilateral cysts containing mural calcification measuring up to 1.0 cm on the right and 1.4 cm on the left. *? Complicated cyst measuring 1.2 cm within the left midpole. EGD/Colon : 09/2022 Endoscopy Findings: esophagitis lax LES possible barretts gastritis Colonoscopy Findings: internal hemorrhoids diverticular disease redundant, tortuous colon Bx: pos barretts, high mast cells in TI and colon, IgG4 <40% INTERIM: she is happy with movantik she was in the ED last week with vomiting and burning coal like sensation she was given meds for sx control, this attack lasted for about a day or two she had CT with contrast which was neg for obstruction she has some low grade burning sensation upper abdomen and mid abdomen incomplete evac of stools she has mouth sores as well EXAM: GENERAL: The patient is well developed and nontoxic. VITAL SIGNS:see workflow HEENT: Nonicteric sclerae, PERRLA, EOMI. Oropharynx clear. Moist mucous membranes. Conjunctivae appear well perfused. No thyroid mass. CHEST: Chest wall is nontender. HEART: Regular rate and rhythm without murmurs. LUNGS: Clear to auscultation bilaterally. ABDOMEN: Soft, positive bowel sounds, tender epigastirec , no organomegaly.no flank tenderness SKIN: No rash, no excessive bruising, petechiae, or purpura., heberdens nodes on fingers, NEUROLOGIC: Cranial nerves II-XII intact without motor/sensory deficit. P A/P: 1/ Recurrent bowel obstrcution. Prior hx of surgeries and laparotomy. She is also on chronic opiates which is probably contributing to her sx by dysmotility. Symptoms much improved with laxative regimen including movantik, 2/ Anemia, ? due to NSAID, but on pepcid as well, stable--recheck today 3/ renal cysts-- PLAN: 1/ CT e 2/ rechekc labs and vitamin levels, fecal lactoferrin 3/ UA 4/ reviewed noted from [facility]- ED-- CT with enterocolitis and rasied WCC< plts 5/ trial of carafate PFSH Medical History Renal cyst Pelvic floor dysfunction Edema Tremor Neck pain Cervical spondylolysis Vaginal dryness Small bowel obstruction Tinnitus Carpal tunnel syndrome Depressive disorder Hyperthyroidism Adenomatous colon polyp Unspecified intestinal obstruction, unspecified as to partial versus complete obstruction Surgical History History of esophagogastroduodenoscopy (EGD) Hx of colonoscopy H/O splenectomy Hx of appendectomy H/O abdominal surgery History of carpal tunnel surgery Family History Mother Muscular degeneration Skin cancer Thyroid cancer Aneurysm Sister HTN (hypertension) Thyroid disease Father Endocarditis Malignant carcinoid tumor of lung Social History Household Members: None Alcohol intake: current Alcohol intake frequency: holidays/special occasions only Patient Tobacco Use Status: Former Tobacco user Current occupational status: employed 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 Physical Exam Vital Signs: Last Vital Signs Pulse 74 09/22/24 13:18 BP 117/58 L 09/22/24 13:18 BMI result Body Mass Index 20.1 Assessment & Plan Assessment & Plan (1) Small bowel obstruction: Code(s): K56.609 - Unspecified intestinal obstruction, unspecified as to partial versus complete obstruction Category: Medical Plan: as above (2) Epigastric abdominal pain: Code(s): R10.13 - Epigastric pain Category: Medical Plan: as above Orders: Orders CT enterography Today K56.609 - Unspecified intestinal obstruction, unspecified as to partial versus complete obstruction, R10.13 - Epigastric pain, R10.33 - Periumbilical pain UA CC w/rflx Micro + Cult Today K56.609 - Unspecified intestinal obstruction, unspecified as to partial versus complete obstruction, R10.13 - Epigastric pain, R30.0 - Dysuria Vitamin C Today K56.609 - Unspecified intestinal obstruction, unspecified as to partial versus complete obstruction, R10.13 - Epigastric pain C Reactive Protein Today K56.609 - Unspecified intestinal obstruction, unspecified as to partial versus complete obstruction, R10.13 - Epigastric pain Complete Blood Count Auto Diff Today K56.609 - Unspecified intestinal obstruction, unspecified as to partial versus complete obstruction, R10.13 - Epigastric pain Comprehensive Met. Panel Today K56.609 - Unspecified intestinal obstruction, unspecified as to partial versus complete obstruction, K75.81 - Nonalcoholic steatohepatitis (DAVILA), R10.13 - Epigastric pain Zinc Today K56.609 - Unspecified intestinal obstruction, unspecified as to partial versus complete obstruction, R10.13 - Epigastric pain Ferritin Today K56.609 - Unspecified intestinal obstruction, unspecified as to partial versus complete obstruction, R10.13 - Epigastric pain Lactoferrin, Fecal, Quant. Today K51.50 - Left sided colitis without complications, K56.609 - Unspecified intestinal obstruction, unspecified as to partial versus complete obstruction, R10.13 - Epigastric pain Immunoglobulins,IgG IgA IgM Today K56.609 - Unspecified intestinal obstruction, unspecified as to partial versus complete obstruction, R10.13 - Epigastric pain Medications: New sucralfate 1 g PO BID 60 tabs 1RF sodium,potassium,mag sulfates 17.5-3.13-1.6 gram (Suprep Bowel Prep Kit) DILUTE; drink 1/2 at 6-8 pm and half at 11 PM- 1AM 354 mL 0RF Coding Level of Care Code Est Pt Level 4 (55944) Diagnoses Small bowel obstruction K56.609 Epigastric abdominal pain R10.13
[2024-09-22 13:18] VITALS: BP 117/58; PULSE 74; BMI 20.1
--- OUTSIDE RECORDS SUMMARY | 2024-09-22 14:26 | XMS_ITS | Clinical Summary ---
Author Organization [facility] Address [address] [facility] [address] [place] [address] Phone Care Team Providers Care Chemical Packager Name Role Phone Isaura Barney LIBERAL ARTS DEAN Primary Care Provider [phone] Allergies Active Allergy Reactions Criticality Noted Date Comments Codeine Itching 09/25/2019 Diphenhydramine Itching Medium 07/25/2018 Other reaction(s): cant tolerated anxiety Medications buPROPion XL (WELLBUTRIN XL) 300 MG 24 hr tablet Take 300 mg by mouth 1 (one) time each day Do not crush, chew, or split. Active butalbital-acet aminophen-caffe ine (FIORICET, ESGIC) 50-325-40 MG per tablet Take 1 tablet by mouth every 4 (four) hours if needed for headaches Active calcium carbonate EX (TUMS EX) 750 MG chewable tablet Chew 750 mg in the morning and 750 mg in the evening. Active clonazePAM (KlonoPIN) 0.5 MG tablet Take 0.5 mg by mouth in the morning and 0.5 mg in the evening. Active cyanocobalamin (VITAMIN B-12) 1000 MCG tablet Take 100 mcg by mouth 1 (one) time each day Active famotidine (PEPCID) 20 MG tablet Take 20 mg by mouth in the morning and 20 mg in the evening. Active fexofenadine (MARIA ALEJANDRA) 180 MG tablet Take 180 mg by mouth 1 (one) time each day Active indomethacin (INDOCIN) 50 MG capsule Take 50 mg by mouth in the morning and 50 mg in the evening. Take with meals. prn. Active levothyroxine sodium (TIROSINT) 75 MCG capsule Take 75 mcg by mouth 1 (one) time each day Active modafinil (PROVIGIL) 200 MG tablet Take 200 mg by mouth 1 (one) time each day Active montelukast (SINGULAIR) 10 MG tablet Take 10 mg by mouth every night Active Naloxegol Oxalate 12.5 MG tablet Take 12.5 mg by mouth Active oxyCODONE-aceta minophen (PERCOCET) 5-325 MG per tablet Take 1 tablet by mouth every 4 (four) hours if needed for moderate pain or severe pain Active QUEtiapine (SEROquel) 50 MG tablet Take 50 mg by mouth every night Active Estradiol (Yuvafem) 10 MCG tablet Insert into the vagina Active Active Problems Problem Noted Date Diagnosed Date Cyst of kidney 11/10/2021 Recurrent and persistent hem aturia with minimal change lesion 11/10/2021 Immunizations Name Administration Dates Next Due Influenza, Quadrivalent, Preservative Free 07/29,07/23/2019 Tdap 05/22/2012 Family History Medical History Relation Comments Lung cancer Father Stroke Mother Thyroid nodules Sister Relation Status Comments Father Mother Sister Social History Tobacco Use Types Packs/Day Years Used Date Smoking Tobacco: Former Cigarettes Smokeless Tobacco: Never Alcohol Use Standard Drinks/Week Comments Yes 0 (1 standard drink = 0.6 oz pur e alcohol) occasionally Comments Unknown Sex and Gender Information Value Date Recorded Sex Assigned at Not on file Legal Sex Female 4:01 PM EST Gender Identity Not on file Sexual Orientation Not on file Last Filed Vital Signs Vital Sign Reading Time Taken Comments Blood Pressure 120/70 11/10/2021 2:48 PM EDT Pulse 67 11/10/2021 2:48 PM EDT Temperature - - Respiratory Rate - - Oxygen Saturation 97% 11/10/2021 2:48 PM EDT Inhaled Oxygen Concentration - - Weight 53.1 kg (117 lb) 11/10/2021 2:48 PM EDT Height - - Body Mass Index - - Plan of Treatment Health Maintenance Due Date Last Done Comments Breast Cancer Screening 1960 Pneumococcal Vaccine: 65+ Years (1 of 2 - PCV) 1964 Colorectal Cancer Screening: Annual FOBT 2007 Colorectal Cancer Screening: Colonoscopy 2007 Colorectal Cancer Screening: Sigmoidoscopy 2007 Influenza Vaccine (#1) 2024 0, 07/23/2019 Hepatitis B Vaccine Aged Out No longe r eligible based on patient's age to complete this topic Insurance [place]ICA[place] Care Teams Chemical Packager Relationship Specialty Start Date End Date Isaura Barney NP [address] [place] [address] PCP - General Nurse Practitioner 10/03/21
--- OUTSIDE RECORDS SUMMARY | 2024-09-22 14:26 | XMS_ITS | Encounter Summary ---
Author Organization [facility] Address [address] [place] [address] Phone Care Team Providers Care Polymer Tester Name Role Phone Isaura Barney MIXER AND SCALER Primary Care Provider [phone] Encounter Details Date Type Department Care Team (Late st Contact Info) Description 05/09/2022 Office Communication [facility] [address] [place] [address] Jaimie Linn Social History Tobacco Use Types Packs/Day Years [...] on file Sexual Orientation Not on file documented as of this encounter Miscellaneous Notes * Telephone Encounter - Sabino Shahid DO - 05/09/2022 3:45 PM EDT That's fine. Please forward her renal imaging (MRI) from [facility] to her PCP so they have documentation. Per radiology report no further surveillance/imaging was warranted for these cysts. * Telephone Encounter - Jaimie Linn - 05/09/2022 3:01 PM EDT Pt called, she missed her 6 mo follow-up today due to an emergency and wondering if it is even necessary to reschedule as she hasn't had any repeat imaging and this is a follow-up from a new pt appt that was for a small kidney cyst that the first imaging showed is stable and not causing any issues.Please advise documented in this encounter Plan of Treatment Not on file documented as of this encounter Visit Diagnoses Not on filedocumented in this encounter Care Teams Polymer Tester Relationship Specialty Start Date End Date Isaura Barney NP [address] [place] [phone] PCP - General Nurse Practitioner 10/03/21 documented as of this encounter
== END 2024-09-22 14:01 | disposition home or self-care (01) ==
PROVIDERS: PCP Nurse Practitioner; Visit Provider Internal Medicine Gastroenterology
DX: K56.609 Unspecified intestinal obstruction, unspecified as to partial versus complete obstruction (principal); R10.13 Epigastric pain
CPT/HCPCS: 99214

== ENCOUNTER → 2024-09-22 13:07 | Outpatient (BNVA) | payer MEDICARE, SELFPAY | PROVIDERS: PCP Nurse Practitioner; Visit Provider Internal Medicine Gastroenterology | DX: K56.609 Unspecified intestinal obstruction, unspecified as to partial versus complete obstruction (principal); R10.13 Epigastric pain | CPT/HCPCS: 99212 ==

== ENCOUNTER 2025-01-20 14:01 | Outpatient (REF) | payer MEDICARE, SELFPAY ==
[2025-01-20 14:17] LABS: MANUAL DIFF FLAG NO
[2025-01-20 14:58] LABS: Appearance Urine Clear; Color Urine Yellow; Glucose Urine UA Negative (Negative); Leukocyte Esterase Urine Negative (Negative); Nitrite Urine Negative (Negative); PH 6.5 (5.0-9.0); UMIC TRIGGER UACC YES; Urine Blood Small (1+) (Negative); Urine Ketones Negative (Negative); Urine Protein Negative (Neg-Trace)
[2025-01-20 15:00] LABS: Basophils Absolute Auto 0.1 X10*3/uL (0.0-0.2); Basophils Percent Auto 1.3 % (0-2); Eosinophils Absolute Auto 0.2 X10*3/uL (0.0-0.4); Eosinophils Percent Auto 3.3 % (0-4); Hematocrit 35.4 % (37.0-47.0); Hemoglobin 12.2 g/dl (12.0-16.0); Imm Gran Abs Auto 0.01 X10*3/uL (0.00-0.03); Imm Gran Pct Auto 0.1 % (0.0-0.4); Lymphocytes Absolute Auto 2.8 X10*3/uL (1.2-4.9); Lymphocytes Percent Auto 39.4 % (20-40); Mean Corpuscular HGB Conc 34.5 g/dl (31.0-35.0); Mean Corpuscular Hemoglobin 33.2 pg (27.0-33.0); Mean Corpuscular Volume 96.5 fL (80.0-98.0); Mean Platelet Volume 9.8 fL (9.4-12.3); Monocytes Absolute Auto 0.6 X10*3/uL (0.1-1.2); Monocytes Percent Auto 8.4 % (2-11); Neutrophils Absolute Auto 3.3 x10*3/uL (2.0-8.3); Neutrophils Percent Auto 47.5 % (45-73); Platelet Count 418 X10*3/uL (160-400); Red Blood Count 3.67 X10*6/uL (4.20-5.50); Red Cell Distribution Width 12.9 % (11.0-16.0)
[2025-01-20 15:17] LABS: Bacteria Urine None Seen (None Seen); Hyaline Casts Urine 0-2 /LPF (0-2); Squamous Epithelial Cell Urine 0-2 /HPF (0-2); WBC Urine 0-5 /HPF (0-5)
--- OUTSIDE RECORDS SUMMARY | 2025-01-20 15:49 | XMS_ITS | Encounter Summary ---
Author Organization [facility] Address [address] [place] [address] Phone Care Team Providers Care Shipping Track Supervisor Name Role Phone Isaura Barney PEDIATRIC DENTIST Primary Care Provider [phone] Encounter Details Date Type Department Care Team (Late st Contact Info) Description 05/09/2022 Office Communication [facility] [address] [place] [address] Jaimie Linn Social History Tobacco [...] on filedocumented in this encounter Care Teams Shipping Track Supervisor Relationship Specialty Start Date End Date Isaura Barney NP [address] [place] [phone] PCP - General Nurse Practitioner 10/03/21 documented as of this encounter
[2025-01-20 16:54] LABS: Alanine Aminotransferase 22 U/L (0-31); Albumin Level 4.4 g/dL (3.5-5.0); Anion Gap 10 (12-20); Aspartate Amino Transferase 18 U/L (5-31); Bilirubin Total 0.3 mg/dL (0.0-1.0); Blood Urea Nitrogen 17 mg/dL (9-16); C Reactive Protein < 0.10 mg/dL (< or = 0.50); Calcium 9.2 mg/dL (8.4-10.2); Carbon Dioxide 26 mmol/L (22-29); Chloride 105 mmol/L (96-108); Estimated Glomerular Filt Rate > 60; Glucose Random 86 mg/dL (60-115); Potassium 4.1 mmol/L (3.3-5.1); Sodium 137 mmol/L (135-145); Total Protein 7.1 g/dL (6.5-8.0)
[2025-01-20 17:02] LABS: Ferritin 67 ng/mL (10-250)
[2025-01-20 17:13] LABS: Alkaline Phosphatase 63 U/L (39-117)
[2025-01-21 04:19] LABS: IgA 186 mg/dL (70-320); IgG 968 mg/dL (600-1540); IgM 80 mg/dL (50-300)
[2025-01-23 05:58] LABS: Zinc 68 mcg/dL (60-130)
[2025-01-26 06:14] LABS: Vitamin C 1.1 mg/dL (0.3-2.7)
== END 2025-01-20 14:02 | disposition home or self-care (01) ==
LOC: HO.LAB 14:01
PROVIDERS: Visit Provider Internal Medicine Gastroenterology
DX: R10.13 Epigastric pain (principal); K75.81 Nonalcoholic steatohepatitis (NASH); K56.609 Unspecified intestinal obstruction, unspecified as to partial versus complete obstruction
CPT/HCPCS: 36415; 80053; 81001; 82180; 82728; 82784; 84630; 85025; 86140

== ENCOUNTER 2025-01-23 14:46 | Outpatient (REF) | payer MEDICARE, SELFPAY ==
--- OUTSIDE RECORDS SUMMARY | 2025-01-23 14:47 | XMS_ITS | Encounter Summary ---
Author Organization [facility] Address [address] [place] [address] Phone Care Team Providers Care Oil Lease Operator Name Role Phone Isaura Barney HEALTH AND PHYSICAL EDUCATION PROFESSOR Primary Care Provider [phone] Encounter Details Date Type Department Care Team (Late st Contact Info) Description 05/09/2022 Office Communication [facility] [address] [place] [address] Jaimie Linn Social History Tobacco [...] on filedocumented in this encounter Care Teams Oil Lease Operator Relationship Specialty Start Date End Date Isaura Barney NP [address] [place] [phone] PCP - General Nurse Practitioner 10/03/21 documented as of this encounter
[2025-01-30 15:44] LABS: Lactoferrin, Fecal, Quant. <6.25 mcg/mL (<7.25)
== END 2025-01-23 14:47 | disposition home or self-care (01) ==
LOC: HO.LNP 14:46
PROVIDERS: Visit Provider Internal Medicine Gastroenterology
DX: K51.50 Left sided colitis without complications (principal); K56.609 Unspecified intestinal obstruction, unspecified as to partial versus complete obstruction; R10.13 Epigastric pain
CPT/HCPCS: 83631

== ENCOUNTER 2025-01-27 14:59 | Outpatient (REF) | payer MEDICARE, SELFPAY ==
--- NOTE | ~2025-01-27 | CT_ITS ---
CLINICAL HISTORY: R10.33 - Periumbilical pain CT abdomen and pelvis with contrast Comparison: None Findings: No consolidation or effusion. There are multiple bilateral kidney cysts. The spleen is absent. There are multiple splenules. There is incomplete visualization of the dome of the liver. Visualized liver parenchyma is unremarkable. The pancreas and adrenal glands are unremarkable. There is no free fluid or lymphadenopathy. There is fluid throughout both large and small bowel. There is a 3 cm masslike focus within the cecum (series 6 images 17- 22 ). No mesenteric edema. No bowel obstruction. There are surgical clips adjacent to the rene hepatis and within the retroperitoneum. Poorly distended urinary bladder. Otherwise unremarkable pelvic contents. The appendix is not definitively seen. There are no secondary findings to suggest appendicitis. No acute fracture. IMPRESSION: 3 cm masslike focus within the cecum raising the possibility of neoplasm. Recommend further evaluation with colonoscopy. This document has been electronically signed by: Sary Wolfe MD on 01/28/2025 16:38:25
[2025-01-27] MEDS: iohexoL 350 MG/ML 100 ML INFUS..BTL IV (17:18)
[2025-01-27] MEDS: Sorbitol/Mannit/Xanth Imaging 500 ML LIQUID 1500 ML PO (17:19)
--- OUTSIDE RECORDS SUMMARY | 2025-01-27 18:05 | XMS_ITS | Encounter Summary ---
Author Organization [facility] Address [address] [place] [address] Phone Care Team Providers Care Director Of Global Sales Name Role Phone Isaura Barney LICENSING OFFICER Primary Care Provider Encounter Details Date Type Department Care Team (Late st Contact Info) Description 05/09/2022 Office Communication [facility] [address] [place] [address] Jaimie Linn Social History Tobacco [...] on filedocumented in this encounter Care Teams Director Of Global Sales Relationship Specialty Start Date End Date Isaura Barney NP [address] [place] [phone] PCP - General Nurse Practitioner 10/03/21 documented as of this encounter
== END 2025-01-27 15:00 | disposition home or self-care (01) ==
LOC: HO.CT 14:59
PROVIDERS: PCP Nurse Practitioner; Visit Provider Internal Medicine Gastroenterology
DX: R10.33 Periumbilical pain (principal); R10.13 Epigastric pain; K56.609 Unspecified intestinal obstruction, unspecified as to partial versus complete obstruction
CPT/HCPCS: 74177; Q9967

== ENCOUNTER → 2025-01-27 15:01 | Outpatient (BNV) | payer MEDICARE, SELFPAY | PROVIDERS: PCP Nurse Practitioner; Visit Provider Radiology Diagnostic Radiology | DX: R10.33 Periumbilical pain (principal) | CPT/HCPCS: 74177 ==

== ENCOUNTER 2025-02-12 09:05 | Day surgery (SDC) | payer MEDICARE, SELFPAY ==
--- OUTSIDE RECORDS SUMMARY | 2025-02-03 14:35 | XMS_ITS | Encounter Summary ---
Author Organization [facility] Address [address] [place] [address] Phone Care Team Providers Care Decay Control Operator Name Role Phone Isaura Barney TRAVELING SALES REPRESENTATIVE Primary Care Provider [phone] Encounter Details Date Type Department Care Team (Late st Contact Info) Description 05/09/2022 Office Communication [facility] [address] [place] [address] Jaimie Linn Social History Tobacco [...] on filedocumented in this encounter Care Teams Decay Control Operator Relationship Specialty Start Date End Date Isaura Barney NP [address] [place] [phone] PCP - General Nurse Practitioner 10/03/21 documented as of this encounter
[2025-02-10 14:54] VITALS: BMI 20.1
--- NOTE | 2025-02-11 12:09 | HO.ANESPROP2 ---
Documented by User: Luisana Sow NP 02/11/25 12:10 HPI - Anesthesia Eval Consult details Narrative: 64yo F for Colonoscopy PMFSH Active Problems Active Problems: All Active Problems Epigastric abdominal pain (Acute) Osteoarthritis of foot (Acute) Osteoarthritis of hands, bilateral (Acute) Rheumatoid factor positive (Acute) History of Hodgkin's granuloma (Acute) Multiple joint pain (Acute) Kidney cysts (Acute) Arthropathy (Acute) Small bowel obstruction (Acute) Past Medical History Medical History Hypothyroidism Renal cyst Pelvic floor dysfunction Edema Tremor Neck pain Cervical spondylolysis Vaginal dryness Small bowel obstruction Tinnitus Carpal tunnel syndrome Depressive disorder Adenomatous colon polyp Unspecified intestinal obstruction, unspecified as to partial versus complete obstruction Family History Family History Mother Muscular degeneration Skin cancer Thyroid cancer Aneurysm Sister HTN (hypertension) Thyroid disease Father Endocarditis Malignant carcinoid tumor of lung Family history of problems with anesthesia: No Surgical History Surgical History History of esophagogastroduodenoscopy (EGD) Hx of colonoscopy H/O splenectomy Hx of appendectomy H/O abdominal surgery History of carpal tunnel surgery History of Problems with Anesthesia: No Social History Social History Household Members: None Are you a primary professional healthcare representative to a significant other at home: No Do you presently have visiting nurse or other home services: No Alcohol intake: current Alcohol intake frequency: holidays/special occasions only Patient Tobacco Use Status: Former Tobacco user Second Hand Smoke Exposure: No Use of substances other than those prescribed or required for medical reasons: No Have you been hit, kicked, punched, or otherwise hurt by someone within the past year? If so, by whom?: No Are you DNR?: No Advance Directives: No Advance Directives Information Provided: Yes Advance Directives on File: No Patient : No : No Poor oral hygiene: No Current occupational status: employed Current occupation: [employer] Allergies Allergy/AdvReac Type Severity Reaction Status Date / Time codeine Allergy Mild anxiety, Verified 09/22/24 13:18 itch diphenhydramine (From Allergy Mild Itchy Verified 09/22/24 13:19 Benadryl) Eyes, anxiety Home Medications ?Medication ?Instructions ?Recorded ?Confirmed ?Last Taken ?Type butalbital 50 mg-acetaminophen 325 1 cap PO Q4H PRN Migraine Headache 08/04/21 02/12/25 Unknown History mg-caffeine 40 mg-codeine 30 mg cap calcium carbonate 600 mg PO DAILY 08/04/21 02/12/25 Unknown History famotidine 20 mg tablet 20 mg PO BID 08/04/21 02/12/25 Unknown History fexofenadine 180 mg tablet 180 mg PO DAILY 08/04/21 02/12/25 Unknown History (Akila Allergy) omega-3 fatty acids 1,000 mg 1,000 mg PO DAILY 08/04/21 02/12/25 Unknown History capsule (Fish Oil Concentrate) clonazepam 0.5 mg tablet 3 mg PO TID 08/08/21 02/12/25 Unknown History oxycodone-acetaminophen 5 mg-325 1 tab PO Q4H PRN Pain 08/08/21 02/12/25 10/05/22 History mg tablet bupropion HCl 300 mg 24 hr tablet, 300 mg PO QAM 12/12/21 02/12/25 10/05/22 History extended release amitriptyline 25 mg tablet 25 mg PO BEDTIME 09/22/24 02/12/25 Unknown History estradiol 10 mcg vaginal tablet 10 mcg vaginal NEEDED 09/22/24 02/12/25 Unknown History (Yuvafem) fluticasone propionate 50 2 spray intranasal DAILY 09/22/24 02/12/25 Unknown History mcg/actuation nasal spray,suspension levothyroxine 75 mcg tablet 75 mcg PO DAILY 09/22/24 02/12/25 Unknown History modafinil 200 mg tablet 200 mg PO DAILY 09/22/24 02/12/25 Unknown History oxycodone 5 mg tablet 10 mg PO BID 09/22/24 02/12/25 Unknown History progesterone micronized 100 mg 100 mg PO BEDTIME 09/22/24 02/12/25 Unknown History capsule quetiapine 100 mg tablet 100 mg PO BEDTIME 09/22/24 02/12/25 Unknown History venlafaxine 37.5 mg 37.5 mg PO DAILY 09/22/24 02/12/25 Unknown History capsule,extended release 24 hr Exam Height,Weight and Vital Signs: Height 5 ft 4 in Weight 53.07 kg Pertinent Lab Results Pertinent Lab Results: Laboratory Tests 01/20/25 14:16 WBC 7.0 Hgb 12.2 Hct 35.4 L Plt Count 418 H Assessment and Plan Assessment Anesthesia Assessment: Chart Reviewed Final Anesthetic Review Family History of Problems with Anesthesia: No History of Problems with Anesthesia: No Documented by User: Zuly Mendes MD 02/12/25 09:33 [facility] Past Medical History Medical History Hypothyroidism Renal cyst Pelvic floor dysfunction Edema Tremor Neck pain Cervical spondylolysis Vaginal dryness Small bowel obstruction Tinnitus Carpal tunnel syndrome Depressive disorder Adenomatous colon polyp Unspecified intestinal obstruction, unspecified as to partial versus complete obstruction Family History Family History Mother Muscular degeneration Skin cancer Thyroid cancer Aneurysm Sister HTN (hypertension) Thyroid disease Father Endocarditis Malignant carcinoid tumor of lung Surgical History Surgical History History of esophagogastroduodenoscopy (EGD) Hx of colonoscopy H/O splenectomy Hx of appendectomy H/O abdominal surgery History of carpal tunnel surgery Social History Social History Household Members: None Are you a primary professional healthcare representative to a significant other at home: No Do you presently have visiting nurse or other home services: No Alcohol intake: current Alcohol intake frequency: holidays/special occasions only Patient Tobacco Use Status: Former Tobacco user Second Hand Smoke Exposure: No Use of substances other than those prescribed or required for medical reasons: No Have you been hit, kicked, punched, or otherwise hurt by someone within the past year? If so, by whom?: No Are you DNR?: No Advance Directives: No Advance Directives Information Provided: Yes Advance Directives on File: No Patient : No : No Poor oral hygiene: No Current occupational status: employed Current occupation: [employer] Allergies Allergy/AdvReac Type Severity Reaction Status Date / Time codeine Allergy Mild anxiety, Verified 09/22/24 13:18 itch diphenhydramine (From Allergy Mild Itchy Verified 09/22/24 13:19 Benadryl) Eyes, anxiety Home Medications ?Medication ?Instructions ?Recorded ?Confirmed ?Last Taken ?Type butalbital 50 mg-acetaminophen 325 1 cap PO Q4H PRN Migraine Headache 08/04/21 02/12/25 Unknown History mg-caffeine 40 mg-codeine 30 mg cap calcium carbonate 600 mg PO DAILY 08/04/21 02/12/25 Unknown History famotidine 20 mg tablet 20 mg PO BID 08/04/21 02/12/25 Unknown History fexofenadine 180 mg tablet 180 mg PO DAILY 08/04/21 02/12/25 Unknown History (Akila Allergy) omega-3 fatty acids 1,000 mg 1,000 mg PO DAILY 08/04/21 02/12/25 Unknown History capsule (Fish Oil Concentrate) clonazepam 0.5 mg tablet 3 mg PO TID 08/08/21 02/12/25 Unknown History oxycodone-acetaminophen 5 mg-325 1 tab PO Q4H PRN Pain 08/08/21 02/12/25 10/05/22 History mg tablet bupropion HCl 300 mg 24 hr tablet, 300 mg PO QAM 12/12/21 02/12/25 10/05/22 History extended release amitriptyline 25 mg tablet 25 mg PO BEDTIME 09/22/24 02/12/25 Unknown History estradiol 10 mcg vaginal tablet 10 mcg vaginal NEEDED 09/22/24 02/12/25 Unknown History (Yuvafem) fluticasone propionate 50 2 spray intranasal DAILY 09/22/24 02/12/25 Unknown History mcg/actuation nasal spray,suspension levothyroxine 75 mcg tablet 75 mcg PO DAILY 09/22/24 02/12/25 Unknown History modafinil 200 mg tablet 200 mg PO DAILY 09/22/24 02/12/25 Unknown History oxycodone 5 mg tablet 10 mg PO BID 09/22/24 02/12/25 Unknown History progesterone micronized 100 mg 100 mg PO BEDTIME 09/22/24 02/12/25 Unknown History capsule quetiapine 100 mg tablet 100 mg PO BEDTIME 09/22/24 02/12/25 Unknown History venlafaxine 37.5 mg 37.5 mg PO DAILY 09/22/24 02/12/25 Unknown History capsule,extended release 24 hr Exam Airway Mallampati Class: II TM Dist: >3cm Neck ROM: Limited Heart: rrr Lungs: cta Assessment and Plan Assessment Anesthesia Assessment: Anesthesia Plan Discussed Final Anesthetic Review NPO: Yes ASA Class: III Final Preanesthetic Review: No Changes in Pt Med Stat, Meds/Allgs Chart Reviewed, Consent Obtained/Reviewed and Anes Risks/Benef Reviewed Patient Risk: Intermediate Procedure Risk: Low Anesthetic Plan Anesthetic Plan: MAC:
[2025-02-12 09:29] VITALS: BP 119/65; PULSE 71; RESP 16; TEMP 36.7; O2SAT 98
[2025-02-12] MEDS: Lactated Ringers 1,000 ML 100 ML IVCONT (09:30)
--- NOTE | 2025-02-12 10:41 | MHC.SHP ---
Pre-Procedural Eval Section A - 24 Hr Update-Section A only Date of Service: 02/12/25 Section B - Complete if H&P > 30 days Chief Complaint: Unspecified intestinal obstruction,epigastric pain Relevant Family History (Specify if Yes): No Relevant Social History: None Present Medications: see Short Stay Collaborative assessment Medical History: Significant History (Renal cyst Pelvic floor dysfunction Edema Tremor Neck pain Cervical spondylolysis Vaginal dryness Small bowel obstruction Tinnitus Carpal tunnel syndrome Depressive disorder Hyperthyroidism Adenomatous colon polyp Unspecified intestinal obstruction, unspecified as to partial versus complete obstruct) History of Previous Operations: Relevant previous surgery/procedure and date(s) (History of esophagogastroduodenoscopy (EGD) Hx of colonoscopy H/O splenectomy Hx of appendectomy H/O abdominal surgery History of carpal tunnel surgery) Allergies: Allergies Allergy/AdvReac Type Severity Reaction Status Date / Time codeine Allergy Mild anxiety, Verified 09/22/24 13:18 itch diphenhydramine (From Allergy Mild Itchy Verified 09/22/24 13:19 Benadryl) Eyes, anxiety Review of Systems Sugical H&P ROS: Negative: Constitution, Cardiovascular, Respiratory, Neurological, Psychiatric, Hem-Onc, Allergic/Immunologic, Gastrointestinal, Genitourinary, Musculoskeletal, Integumentary, Endocrine and Eyes/Ears/Nose/Throat Exam Surgical H&P Exam: Normal: HEENT, Normal: Heart, Normal: Lungs, Normal: Extremities, Normal: Abdomen, Normal: Skin and Normal: Neurological Plan Diagnosis/Plan: Unchanged I have reviewed the history and physical and performed a pertinent physical examination on my patient. No changes have occurred unless specified. Time Spent With Patient Time: Total time managing care of this patient today ____ minutes.
--- NOTE | 2025-02-12 11:16 | HO.OPN-COLON ---
Colonoscopy Operative Note Operative Note Date of Service: 02/12/25 Narrative: Operative Information Procedure Description: Colonoscopy Indication: hx if colitis Anesthesia: MAC COLONOSCOPY Instrument: Olympus variable stiffness pediatric scope 190L Colonoscopy Monitoring: Vital signs and clinical assessment, continuous EKG monitoring, Pulse oximetry, Carbon Dioxide monitoring and blood pressure monitoring were done throughout the procedure. Colon withdrawal time was 14 minutes. Procedure: The patient was placed in the left lateral decubitis position and pre-procedure medications were administered. After a digital rectal examination of the ano-rectum, the video colonoscope was inserted into the rectum and advanced through the colon to the cecum/TI. The colonoscope was slowly withdrawn in a retrograde panoramic fashion and the colon mucosa was carefully examined including a retroflexed view of the rectum. Findings and interventions are described below. Procedure Difficulty: moderate, tortuous colon Findings: Terminal Ileum-normal, random bx taken random bx taken from right and left colon in seperate jars Cecum:normal Ascending Colon: normal Transverse Colon -normal Descending Colon:normal Sigmoid Colon: mild diverticulosis, x 1 sessile polyp 5-6 mm removed with cold forceps Rectum: Retroflexion with small internal hemorrhoids seen, grade I Anorectum - normal Intervention: cold forceps Colon preparation: [place] Bowel Preparation Scale Right colon; 2 Transverse colon: 2 Left colon; 2 (0 = Unprepared colon segment with mucosa not seen due to solid stool that cannot be cleared. 1 = Portion of mucosa of the colon segment seen, but other areas of the colon segment not well seen due to staining, residual stool and/or opaque liquid. 2 = Minor amount of residual staining, small fragments of stool and/or opaque liquid, but mucosa of colon segment seen well. 3 = Entire mucosa of colon segment seen well with no residual staining, small fragments of stool or opaque liquid) Impression and Post Procedure Diagnosis: diverticulosis colon polyp x 1 internal hemorrhoids tortuous colon Plan: High fiber diet leaflet Avoid straining at stool, epsom salts and sitz bath, anusol supps or cream Repeat Colonoscopy in 5 years if adenomatous polyp, 10 yrs if hyperplastic or earlier if clinically indicated Above findings were reviewed with the patient and relevant handouts were provided if indicated.
[2025-02-12 11:21] VITALS: BP 107/55; PULSE 70; RESP 14; TEMP 36.2; O2SAT 97
[2025-02-12 11:36] VITALS: BP 112/63; PULSE 65; RESP 16; TEMP 36.4; O2SAT 98
[2025-02-12 11:51] VITALS: BP 116/65; PULSE 67; RESP 18; TEMP 36.6; O2SAT 99
== END 2025-02-12 12:37 | disposition home or self-care (01) ==
PROVIDERS: PCP Nurse Practitioner; Visit Provider Internal Medicine Gastroenterology
PROC: 0DJD8ZZ Inspection of Lower Intestinal Tract, Via Natural or Artificial Opening Endoscopic (ICD-10-PCS; CPT 45378; principal; 2025-02-12 11:40)
DX: R10.13 Epigastric pain (principal); K63.5 Polyp of colon; K56.2 Volvulus; K57.30 Diverticulosis of large intestine without perforation or abscess without bleeding; K64.0 First degree hemorrhoids; E03.9 Hypothyroidism, unspecified; M12.9 Arthropathy, unspecified; F43.10 Post-traumatic stress disorder, unspecified; Q61.02 Congenital multiple renal cysts; D25.9 Leiomyoma of uterus, unspecified; K76.89 Other specified diseases of liver; Z85.71 Personal history of Hodgkin lymphoma; Z79.891 Long term (current) use of opiate analgesic; Z79.899 Other long term (current) drug therapy; Z87.891 Personal history of nicotine dependence
CPT/HCPCS: 45380; 88305; J2003; J2704

== ENCOUNTER → 2025-02-12 09:05 | Outpatient (BNV) | payer MEDICARE, SELFPAY | PROVIDERS: PCP Nurse Practitioner; Visit Provider Internal Medicine Gastroenterology | DX: Z12.11 Encounter for screening for malignant neoplasm of colon (principal); Z87.19 Personal history of other diseases of the digestive system; D12.5 Benign neoplasm of sigmoid colon; K57.30 Diverticulosis of large intestine without perforation or abscess without bleeding; K64.0 First degree hemorrhoids | CPT/HCPCS: 45380 ==

== ENCOUNTER 2025-06-29 09:34 | Outpatient (AMB) | payer MEDICARE, SELFPAY ==
--- NOTE | 2025-06-29 09:35 | MHC.OFFVIS ---
Vital Signs 06/29/25 09:41 Height 5 ft 4 in Weight 115 lb BMI 19.7 Intake Visit Reasons: f/u obstruction Intake Note: Est pt for mgmt of GERD + chronic abd pain mgmt. CC: Pt has concerns and / or would like to discuss her upcoming travel outside the country and possible scenarios of gastritis flares and what she would have to tell an ED physician. She also has concerns regarding possible celiac testing. She has been following a gluten free diet for the last ~ 12 mos and has noticed a significant improvement in her sx. She cannot recall whether she was ever tested or not. County Engineer Required: No Accompanied by: Self / Same As Patient Allergies codeine Allergy (Mild, Verified 09/22/24 13:18) anxiety, itch diphenhydramine (From Benadryl) Allergy (Mild, Verified 09/22/24 13:19) Itchy Eyes, anxiety hydromorphone (From Dilaudid) Allergy (Unknown, Verified 06/29/25 09:35) Itching HPI HPI f/u obstruction: Details: 64 yr old f w/ hx of PTSd, hypothyroid, Hodgkins lymphoma, splenectomy being seen for f/u RECAP: She has had recurrent small bowel obstructions she had been getting more frequent attacks at least once/year, had been every 3 yrs before niya last 5 yrs ago she had surgery with insertion of film adhesion barrier Before attacks she will normally have a large bowel motion, and nausea, with seizing pain in the back and into the front Usu resolves with fluids and NGT she does have problems with constipation, she takes veg and greens in diet, miralax OD she does get bloating and distention for days to months she does take pepcid for reflux, never awful - 12/27 she takes percocet 40 mg daily she has blotchy skin and brain fog, flushing no raynauds but hands and feet always cold LABS: macrocytosis, fecal bess--borderline, B12 level was normal MRe: constipation, dilated colon down to rectum, uterine fibroids, multiple renal cysts, some complex. liver cysts US: ?Multiple bilateral cysts containing mural calcification measuring up to 1.0 cm on the right and 1.4 cm on the left. *? Complicated cyst measuring 1.2 cm within the left midpole. EGD/Colon : 09/2022 Endoscopy Findings: esophagitis lax LES possible barretts gastritis Colonoscopy Findings: internal hemorrhoids diverticular disease redundant, tortuous colon Bx: pos barretts, high mast cells in TI and colon, IgG4 <40%\ colo 02/11: (don due to abn Ct imaging, of cecum) diverticulosis colon polyp x 1 internal hemorrhoids tortuous colon INTERIM: she feels better with bentyl she feels her heartburn is worse though she is still taking movantik daily A/P: 1/ Recurrent bowel obstrcution. Prior hx of surgeries and laparotomy. She is also on chronic opiates which is probably contributing to her sx by dysmotility. Symptoms much improved with laxative regimen including movantik, 2/ Anemia, ? due to NSAID, but on pepcid as well, stable- 3/ renal cysts-- PLAN: 1/ increase pantoprazole 40 mg and can cont bentyl 20 mg TID 2/ she wants recheck on celiac serology, been gluten free for 1 year, and helping, last checked 2020 and neg, can recheck when she gets back from [place], may have to take a slice of bread daily for 1 week before checking PFS Medical History Hypothyroidism Renal cyst Pelvic floor dysfunction Edema Tremor Neck pain Cervical spondylolysis Vaginal dryness Small bowel obstruction Tinnitus Carpal tunnel syndrome Depressive disorder Adenomatous colon polyp Unspecified intestinal obstruction, unspecified as to partial versus complete obstruction Surgical History S/P right knee arthroscopy History of esophagogastroduodenoscopy (EGD) Hx of colonoscopy H/O splenectomy Hx of appendectomy H/O abdominal surgery History of carpal tunnel surgery Family History Mother Muscular degeneration Skin cancer Thyroid cancer Aneurysm Sister HTN (hypertension) Thyroid disease Father Endocarditis Malignant carcinoid tumor of lung Social History Household Members: None Are you a primary animal daycare provider to a significant other at home: No Do you presently have visiting nurse or other home services: No Alcohol intake: current Alcohol intake frequency: holidays/special occasions only Patient Tobacco Use Status: Former Tobacco user Second Hand Smoke Exposure: No Current occupational status: employed 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 Physical Exam Vital Signs: BMI result Body Mass Index 19.7 Telehealth Telehealth Telehealth Platform: Telephone Location of provider rendering services: practice address Location of patient: address on file Patient Identification confirmed using: Name, : Yes Telehealth method: voice only Patient verbally consented to treatment: Yes Patient verbally consented to billing insurance company: Yes Patient informed of any privacy concerns related to visit: Yes Minutes spent on Phone/Video with Pt.: 5 Assessment & Plan Assessment & Plan (1) GERD (gastroesophageal reflux disease): Code(s): K21.9 - Gastro-esophageal reflux disease without esophagitis Category: Medical Plan: as above Medications: New pantoprazole 40 mg PO DAILY 90 tabs 2RF Discontinued pantoprazole Discontinued Reason: Doctor's Order 20 mg PO DAILY 90 tabs 3RF Coding Level of Care Code Tele Est Pt Level 3 (03626) Diagnoses GERD (gastroesophageal reflux disease) K21.9
[2025-06-29 09:41] VITALS: BMI 19.7
--- OUTSIDE RECORDS SUMMARY | 2025-06-29 10:50 | XMS_ITS | Encounter Summary ---
Author Organization [facility] Address [address] [place] [phone] Phone Care Team Providers Care [employer] Name Role Phone Isaura Barney SOLAR INSTALLATION CREW SUPERVISOR Unavailable [phone] Isaura Barney SOLAR INSTALLATION CREW SUPERVISOR Primary Care Provider Abilio Irizarry MD Unavailable Radhika Penn RN Unavailable Radhika Penn RN Unavailable Isaura Barney SOLAR INSTALLATION CREW SUPERVISOR Primary Care Provider Augustine Carroll MD Unavailable Radhika Penn RN Unavailable Aimee Wall SLIDER ASSEMBLER Unavailable Tree Lay DO Unavailable Lynne Ferrer SOLAR INSTALLATION CREW SUPERVISOR Unavailable [phone] Brooke Tijerina CERAMIC PLATER Unavailable susie Encounter Details Date Type Department Care Team ([facility] st Contact Info) Description 06/06/2021 Procedure Pass Echo Lab [address] [place] [address] Social History Tobacco Use Types Packs/Day Years Used Date Smoking Tobacco: Never Smokeless Tobacco: Never Alcohol Use Standard Drinks/Week Comments No 0 (1 standard drink = 0.6 oz pur e alcohol) Comments No Sex and Gender Information Value Date Recorded Sex Assigned at Female 03/31/2018 7:58 PM EDT Legal Sex Female 9:41 AM EDT Gender Identity Female 03/31/2018 7:58 PM EDT Sexual Orientation Choose not to disclose 2022 11:26 AM EST Occupation Industry Job Start Date Job End Date 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 Not on file No t on file Not on file documented as of this encounter Plan of Treatment Upcoming Encounters Date Type Department Care Team (Late st Contact Info) Description 10/16/2025 1:15 PM EST Appointment [address] [phone] Isaura Barney NP [address] [place] [address] [email or web address] 03/16/2026 9:45 AM EDT Office Visit [facility] [place]monary, Allergy and Critical Care Medicine [address] [place] [phone] Rosendo Salinas MD, MS [address] [facility] [address] [place] [address] documented as of this encounter Visit Diagnoses Not on filedocumented in this encounter Additional Health Concerns Infection Onset Date Last Indicated Resolved Time CoV-Risk 09/13/2022 09/13/2022 09/24/2022 1:22 AM EST documented as of this encounter Care Teams [employer] Relationship Specialty Start Date End Date Isaura Barney NP [address] [place] [address] [email or web address] PCP - General 06/19/19 02/20/22 Isaura Barney NP [address] [place] [address] [email or web address] PCP - General 02/21/22 Isaura Barney NP [address] [place] [address] [email or web address] 07/25/18 02/20/22 Abilio Irizarry MD [address] [place] [id number] [email or web address] [email or web address] Hematology and Oncology 01/05/21 02/20/22 Radhika Penn RN [address] [place] [phone] [email or web address] PHCM Derrick Worker Well Service 05/02/21 10/25/21 Radhika Penn RN [address] [place] [phone] PHCM Derrick Worker Well Service 11/09/21 03/14/22 Augustine Carroll MD [address] [place] [address] [email or web address] Primary Oncologist Medical Oncology 02/23/22 Radhika Penn RN [address] [place] [phone] PHCM Derrick Worker Well Service 11/09/21 06/03/23 Aimee Wall CNP [address] [place] [phone] [email or web address] Nurse Practitioner Oncology 05/17/22 Tree Lay DO [address] [place] [phone] [email or web address] Hematology and Oncology 05/17/22 Lynne Ferrer NP [address], [place] [address] [email or web address] Nurse Practitioner Oncology 05/17/22 Brooke Tijerina, CERAMIC PLATER [address] [place] [phone] [email or web address] Interior Design Project Manager 03/16/23 03/26/23 documented as of this encounter Additional Source Comments The information contained in this document represents components of the legal health record. It is not the complete legal health record.[email or web address]
--- OUTSIDE RECORDS SUMMARY | 2025-06-29 10:50 | XMS_ITS | Encounter Summary ---
Author Organization [facility] Address [address] [place] [address] [place] [address] Phone Care Team Providers Care Wool Brusher Name Role Phone Isaura Barney POULTRY FEED SUPERVISOR Primary Care Provider Augustine Carroll MD Unavailable [phone] Aimee Wall EDGE BONDER Unavailable Tree Lay DO Unavailable Lynne Ferrer POULTRY FEED SUPERVISOR Unavailable [phone] Encounter Details Date Type Department Care Team ([facility] st Contact Info) Description 11/14/2024 Transcribe Orders Virtual Department [address] [place] [address] Isaura Barney NP [address] [place], [place] [id number] [email or web address] Asymptomatic menopausal state (Primary Dx) Social History Tobacco Use Types Packs/Day Years Used Date Smoking Tobacco: Former Cigarettes 2 23 1 974 - 1996 Smokeless Tobacco: Never Alcohol Use Standard Drinks/Week Comments No 0 (1 standard drink = 0.6 oz pur e alcohol) Education Answer Date Recorded Are you interested in more education? Not on ari e 12/15/2022 Are you concerned about learning? Not on file 12/15/2022 No 12/15/2022 No 12/15/2022 Digital Access Answer Date Recorded No 01/12/2023 No 01/12/2023 Reliable internet access at home? Not on file 01/12/2023 Device with a working camera? Not on file Intimate Partner Violence Answer Date R ecorded Are you denied basic needs s uch as food, clothing, or medical care? No 09/14/2024 In the past 12 months have y ou been in a relationship with a person who hurts, threatens, or tries to control you? No 09/14/2024 Are you denied basic needs s uch as food, clothing, or medical care? No 09/14/2024 In the past 12 months have y ou been in a relationship with a person who hurts, threatens, or tries to control you? 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 t on file Not on file documented as of this encounter Plan of Treatment Upcoming Encounters Date Type Department Care Team (Late st Contact Info) Description 10/16/2025 1:15 PM EST Appointment [facility], Bone Density [facility] [place] [address] [place] [address] Isaura Barney NP [address] [place] [address] [email or web address] 03/16/2026 9:45 AM EDT Office Visit [facility] Pulmonary, Allergy and Critical Care Medicine [address] [place] [address] Rosendo Salinas MD, MS [address] [address] [email or web address] Scheduled Orders Name Type Priority Associated Diagnoses Orde r Schedule DXA Screening Imaging Routine Asymptomatic menopausal state Expected: 05/29/2025, Expires: 11/14/2026 documented as of this encounter Visit Diagnoses Diagnosis Asymptomatic menopausal state- Primary documented in this encounter Care Teams Wool Brusher Relationship Specialty Start Date End Date Isaura Barney NP [address] [place] [address] [email or web address] PCP - General 02/21/22 Augustine Carroll MD [address] [place] [address] [address] [place] [address] [email or web address] Primary Oncologist Medical Oncology 02/23/22 Aimee Wall CNP 30 [place] [address] [email or web address] Nurse Practitioner Oncology 05/17/22 Tree Lay DO 30 [place] [address] [email or web address] Hematology and Oncology 05/17/22 Lynne Ferrer NP [address] [place] [address] [email or web address] Nurse Practitioner Oncology 05/17/22 documented as of this encounter Additional Source Comments The information contained in this document represents components of the legal health record. It is not the complete legal health record.[facility]
--- OUTSIDE RECORDS SUMMARY | 2025-06-29 10:50 | XMS_ITS | Encounter Summary ---
Author Organization [facility] Address [address] [place] [address] [place] [address] Phone Care Team Providers Care Telecommunication Engineer Name Role Phone Isaura Barney ENGINEER TECHNICIAN Unavailable [phone] Isaura Barney ENGINEER TECHNICIAN Primary Care Provider Abilio Irizarry MD Unavailable Radhika Penn RN Unavailable Radhika Penn RN Unavailable Isaura Barney ENGINEER TECHNICIAN Primary Care Provider [phone] Augustine Carroll MD Unavailable [phone] Radhika Penn RN Unavailable Aimee Wall MANAGER CLIENT SUPPORT Unavailable Tree Lay DO Unavailable Lynne Ferrer ENGINEER TECHNICIAN Unavailable [phone] Brooke Tijerina METAL ORGAN PIPE MAKER Unavailable susie Encounter Details Date Type Department Care Team (Late st Contact Info) Description 02/17/2020 Procedure Pass [facility], Ct Scan - [address] [address] Social History Tobacco Use Types Packs/Day Years [...] 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 Not on file Not on file documented as of this encounter Plan of Treatment Upcoming Encounters Date Type Department Care Team (Late st Contact Info) Description 10/16/2025 1:15 PM EST Appointment [facility], Bone Density - [address] [address] Isaura Barney NP [address] [place] [address] [email or web address] 03/16/2026 9:45 AM EDT Office Visit [facility] Pulmonary, Allergy and Critical Care Medicine [address] [place] [address] [place] [address] Rosendo Salinas MD, MS 10 [facility] 2nd [place] [address] documented as of this encounter Visit Diagnoses Not on filedocumented in this encounter Additional Health Concerns Infection Onset Date Last Indicated Resolved Time CoV-Risk 03/10/2020 03/11/2020 03/24/2020 1:24 AM EDT CoV-Risk 09/13/2022 09/13/2022 09/24/2022 1:22 AM EST documented as of this encounter Care Teams Telecommunication Engineer Relationship Specialty Start Date End Date Isaura Barney NP [address] [place] [address] [email or web address] PCP - General 06/19/19 02/20/22 Isaura Barney NP [address] [place] [address] [email or web address] PCP - General 02/21/22 Isaura Barney NP [address] [place] [address] [email or web address] 07/25/18 02/20/22 Abilio Irizarry MD [address] [place] [address] [email or web address] Primary Oncologist Hematology and Oncology 01/05/21 02/20/22 Radhika Penn RN [address] [place] [address] [facility] Long Goods Drier 05/02/21 10/25/21 Radhika Penn RN [address] [place] [address] PHCM Long Goods Drier 11/09/21 03/14/22 Augustine Carroll MD [address] [place] [address] [email or web address] Primary Oncologist Medical Oncology 02/23/22 Radhika Penn RN [address] [place] [address] PHCM Long Goods Drier 11/09/21 06/03/23 Aimee Wall CNP 30 [place] [address] [email or web address] Nurse Practitioner Oncology 05/17/22 Tree Lay DO 30 [place] [address] [email or web address] Hematology and Oncology 05/17/22 Lynne Ferrer NP [address] [place] [address] [email or web address] Nurse Practitioner Oncology 05/17/22 Brooke Tijerina, METAL ORGAN PIPE MAKER [address] [place] [address] [email or web address] PHCM Seo Strategist 03/16/23 03/26/23 documented as of this encounter Additional Source Comments The information contained in this document represents components of the legal health record. It is not the complete legal health record.[facility]
--- OUTSIDE RECORDS SUMMARY | 2025-06-29 10:50 | XMS_ITS | Encounter Summary ---
Author Organization [facility] Address [address] [place] [address] Phone Care Team Providers Care Superintendent Horticulture Name Role Phone Isaura Barney TELEGRAPHIC TYPEWRITER MECHANIC Unavailable [phone] Isaura Barney TELEGRAPHIC TYPEWRITER MECHANIC Primary Care Provider [phone] Abilio Irizarry MD Unavailable Radhika Penn RN Unavailable Radhika Penn RN Unavailable Isaura Barney TELEGRAPHIC TYPEWRITER MECHANIC Primary Care Provider [phone] Augustine Carroll MD Unavailable Radhika Penn RN Unavailable Aimee Wall LIPCOAT SPRAYER Unavailable Tree Lay DO Unavailable [phone] Lynne Ferrer TELEGRAPHIC TYPEWRITER MECHANIC Unavailable [phone] Brooke Tijerina ACCOUNTANT BUDGET Unavailable susie Reason for Referral * Occupational Therapy (Routine) - Closed Specialty Diagnoses / Procedures Referred By Malachi t Referred To Contact Occupational Therapy Diagnoses Encounter for rehabilitation Isaura Barney NP Phone: tel: fax: [email or web address] [facility] [address] [place] [address] Phone: tel: Referral ID Status Reason Start Date Expiration Date Visits Re quested Visits Authorized [id number] Closed 10/15/2020 10/15/2021 1 1 Encounter Details Date Type Department Care Team (Late st Contact Info) Description 10/15/2020 Transcribe Orders [facility] Rehabilitation Services [address] [place] [address] Isaura Barney NP [address] [place] [address] [email or web address] Encounter for rehabilitation (Primary Dx) Social History Tobacco Use Types [...] 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 Not on file documented as of this encounter Plan of Treatment Upcoming Encounters Date Type Department Care Team (Late st Contact Info) Description 10/16/2025 1:15 PM EST Appointment [facility], [address] [address] Isaura Barney NP [address] [place] [address] [email or web address] 03/16/2026 9:45 AM EDT Office Visit [facility] Pulmonary, Allergy and Critical Care Medicine 10 [place] [address] Rosendo Salinas MD, MS [address] [address] Scheduled Referrals Name Type Priority Associated Diagnoses Orde r Schedule Ambulatory referral to [facility] Occupational Therapy Outpatient Referral Routine Encounter for rehabilitation Ordered: 10/15/2020 documented as of this encounter Visit Diagnoses Diagnosis Encounter for rehabilitation- Primary documented in this encounter Additional Health Concerns Infection Onset Date Last Indicated Resolved Time CoV-Risk 09/13/2022 09/13/2022 09/24/2022 1:22 AM EST documented as of this encounter Care Teams Superintendent Horticulture Relationship Specialty Start Date End Date Isaura Barney NP [address] [place] [address] [email or web address] PCP - General 06/19/19 02/20/22 Isaura Barney NP [address] [place] [address] [email or web address] PCP - General 02/21/22 Isaura Barney NP [address] [place] [address] [email or web address] 07/25/18 02/20/22 Abilio Irizarry MD [address] [place] [address] [email or web address] Hematology and Oncology 01/05/21 02/20/22 Radhika Penn RN 10 [place] [address] PHCM Toy Assembler Wood 05/02/21 10/25/21 Radhika Penn RN [address] [place] [address] PHCM Toy Assembler Wood 11/09/21 03/14/22 Augustine Carroll MD [address] [place] [address] [address] [place] [address] [email or web address] Primary Oncologist Medical Oncology 02/23/22 Radhika Penn RN [address] [place] [address] PHCM Toy Assembler Wood 11/09/21 06/03/23 Aimee Wall CNP 30 [place] [address] Nurse Practitioner Oncology 05/17/22 Tree Lay DO 30 [place] [address] [email or web address] Hematology and Oncology 05/17/22 Lynne Ferrer NP [address] [place] [address] Nurse Practitioner Oncology 05/17/22 Brooke Tijerina LCSW [address] [place] [address] [email or web address] PHCM Traveling Crane Operator 03/16/23 03/26/23 documented as of this encounter Additional Source Comments The information contained in this document represents components of the legal health record. It is not the complete legal health record.[facility]
--- OUTSIDE RECORDS SUMMARY | 2025-06-29 10:50 | XMS_ITS | Encounter Summary ---
Author Organization [facility] Address [address] [place] [address] [place] [address] Phone Care Team Providers Care Fingernail Former Name Role Phone Isaura Barney BRANCH OFFICE ADMINISTRATOR Primary Care Provider [phone] Augustine Carroll MD Unavailable Radhika Penn RN Unavailable Aimee Wall SUPERVISOR FEED HOUSE Unavailable Tree Lay DO Unavailable [phone] Lynne Ferrer BRANCH OFFICE ADMINISTRATOR Unavailable [phone] Brooke Tijerina ORE MINER BLASTING Unavailable susie [email or web address] Encounter Details Date Type Department Care Team (Late st Contact Info) Description 02/28/2023 Procedure Pass [facility], Ct Scan - [address] [id number] Social History Tobacco Use Types Packs/Day Years [...] with a working camera? 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 2nd [place] [address] documented as of this encounter Visit Diagnoses Not on filedocumented in this encounter Care Teams Fingernail Former Relationship Specialty Start Date End Date Isaura Barney NP [address] [place] [address] [email or web address] PCP - General 02/21/22 Augustine Carroll MD [address] [place] [address] [address] [place] [id number] [email or web address] Primary Oncologist Medical Oncology 02/23/22 Radhika Penn, RN [address] [place] [address] [email or web address] PHCM It Infrastructure Architect 11/09/21 06/03/23 Aimee Wall CNP 30 [place] [address] [email or web address] Nurse Practitioner Oncology 05/17/22 Tree Lay DO 30 [place] [address] [email or web address] Hematology and Oncology 05/17/22 Lynne Ferrer BRANCH OFFICE ADMINISTRATOR [address] [place] [address] [email or web address] Nurse Practitioner Oncology 05/17/22 Brooke Tijerina LCSW 10 [place] [address] [email or web address] PHCM Junior Business Analyst 03/16/23 03/26/23 documented as of this encounter Additional Source Comments The information contained in this document represents components of the legal health record. It is not the complete legal health record.[facility]
--- OUTSIDE RECORDS SUMMARY | 2025-06-29 10:50 | XMS_ITS | Encounter Summary ---
Author Organization [facility] Address [address] [place] [address] [place] [address] Phone Care Team Providers Care Block Cleaner Name Role Phone Isaura Barney FINANCIAL FOUNDATIONS ASSOCIATE Primary Care Provider Augustine Carroll MD Unavailable Radhika Penn RN Unavailable Aimee Wall PATTERNMAKER PLASTER Unavailable Tree Lay DO Unavailable Lynne Ferrer FINANCIAL FOUNDATIONS ASSOCIATE Unavailable [phone] Encounter Details Date Type Department Care Team (Late st Contact Info) Description 05/16/2023 Ancillary Orders [facility], X-Ray - [facility] [address] [place] [address] Gabe Blanco MD [address] [place] [address] [email or web address] Low back pain, unspecified back pain laterality, unspecified chronicity, unspecified whether sciatica present; Pain in thoracic spine Social History Tobacco Use Types Packs/Day Years Used Date Smoking Tobacco: Former Cigarettes 2 23 1 974 - 1997 Smokeless Tobacco: Never Alcohol Use Standard Drinks/Week [...] Date 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 Not on file documented as of this encounter Plan of Treatment Upcoming Encounters Date Type Department Care Team (Late st Contact Info) Description 10/16/2025 1:15 PM EST Appointment [facility], Bone [facility] [address] [place] [address] Isaura Barney NP [address] [place] [address] [email or web address] 03/16/2026 9:45 AM EDT Office Visit [facility] Pulmonary, Allergy and Critical Care Medicine [address] [place] [address] [place] [address] Rosendo Salinas MD, MS 10 [facility] 2nd [place] [address] documented as of this encounter Results * XR THORACIC SPINE 3 VIEW (05/16/2023 11:09 AM EDT) Anatomical Region Laterality Modality T-spine Computed Radiogr aphy 05/20/2023 12:4 6 AM EDT Impressions 05/20/2023 12:47 AM EDT Mild to moderate discogenic degenerative changes. No acute osseous abnormality. Narrative 05/20/2023 12:47 AM EDT XR THORACIC SPINE 3 VIEW COMPARISON: None FINDINGS: ALIGNMENT: No spondylolisthesis. VERTEBRAE: Bones demineralized. Vertebral body heights preserved. DISCS: Disc height loss and endplate sclerosis and marginal osteophytes throughout the upper and mid thoracic spine. FACETS: Facets normally aligned. PARASPINAL SOFT TISSUES: Within normal limits. Procedure Note Ke Walton MD - 05/20/2023 XR THORACIC SPINE 3 VIEW COMPARISON: None FINDINGS: ALIGNMENT: No spondylolisthesis. VERTEBRAE: Bones demineralized. Vertebral body heights preserved. DISCS: Disc height loss and endplate sclerosis and marginal osteophytesthroughout the upper and mid thoracic spine. FACETS: Facets normally aligned. PARASPINAL SOFT TISSUES: Within normal limits. IMPRESSION: Mild to moderate discogenic degenerative changes. No acute osseous abnormality. Gabe Blanco MD IMG XR SPINE Final Result * XR LUMBOSACRAL SPINE 2-3 VIEWS (05/16/2023 11:08 AM EDT) Anatomical Region Laterality Modality L-spine Computed Radiogr aphy 05/20/2023 12:4 5 AM EDT Impressions 05/20/2023 12:46 AM EDT Moderate lumbar spine degenerative change, most pronounced at L5-S1. Narrative 05/20/2023 12:46 AM EDT XR LUMBOSACRAL SPINE 2-3 VIEWS COMPARISON: CT ABDOMEN/PELVIS WITH CONTRAST FINDINGS: ALIGNMENT: Levoconvex curvature centered at L3. Straightening of the lumbar lordosis. 5 mm L5-S1 anterolisthesis. VERTEBRAE: Bones demineralized. Vertebral body heights preserved. DISCS: Disc height loss and endplate sclerosis and marginal osteophytes most pronounced at L2-3. FACETS: Facet arthropathy L3-S1. PARASPINAL SOFT TISSUES: Surgical clips overlying L1 and L4 vertebral bodies, better evaluated on prior CT. Constipation. Procedure Note Ke Walton MD - 05/20/2023 XR LUMBOSACRAL SPINE 2-3 VIEWS COMPARISON: CT ABDOMEN/PELVIS WITH CONTRAST FINDINGS: ALIGNMENT: Levoconvex curvature centered at L3. Straightening of thelumbar lordosis. 5 mm L5-S1 anterolisthesis. VERTEBRAE: Bones demineralized. Vertebral body heights preserved. DISCS: Disc height loss and endplate sclerosis and marginal osteophytesmost pronounced at L2-3. FACETS: Facet arthropathy L3-S1. PARASPINAL SOFT TISSUES: Surgical clips overlying L1 and L4 vertebralbodies, better evaluated on prior CT. Constipation. IMPRESSION: Moderate lumbar spine degenerative change, most pronounced at L5-S1. Gabe Blanco MD IMG XR SPINE Final Result documented in this encounter Visit Diagnoses Diagnosis Low back pain, unspecified back pain laterality, unspecified chronicity, unspecified whether sciatica present Pain in thoracic spine Low back pain, unspecified back pain laterality, unspecified chronicity, unspecified whether sciatica present Pain in thoracic spine documented in this encounter Care Teams Block Cleaner Relationship Specialty Start Date End Date Isaura Barney NP [address] [place] [address] [email or web address] PCP - General 02/21/22 Augustine Carroll MD [address] [place] [address] [address] [place] [address] [email or web address] Primary Oncologist Medical Oncology 02/23/22 Radhika Penn RN [address] [place] [address] [email or web address] PHC Rn Assessment 11/09/21 06/03/23 Aimee Wall CNP [address] [place] [address] [email or web address] Nurse Practitioner Oncology 05/17/22 Tree Lay DO 30 [place] [address] [email or web address] Hematology and Oncology 05/17/22 Lynne Ferrer NP [address] [place] [address] [email or web address] Nurse Practitioner Oncology 05/17/22 documented as of this encounter Additional Source Comments The information contained in this document represents components of the legal health record. It is not the complete legal health record.[facility]
--- OUTSIDE RECORDS SUMMARY | 2025-06-29 10:50 | XMS_ITS | Encounter Summary ---
Author Organization [facility] Address [address] [place] [address] [place] [address] Phone Care Team Providers Care Chlorine Cells Operator Name Role Phone Isaura Barney RETAIL BEAUTY SPECIALIST Primary Care Provider [phone] Augustine Carroll MD Unavailable [phone] Aimee Wall CNP Unavailable Tree Lay DO Unavailable Lynne Ferrer RETAIL BEAUTY SPECIALIST Unavailable [phone] Encounter Details Date Type Department Care Team (Late st Contact Info) Description 09/14/2024 Procedure Pass [facility], Ct Scan - [facility] [address] [place] [address] Social History Tobacco Use Types Packs/Day Years [...] Date 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 Wish to be (Past 1 Month) No 09/14/2024 7:41 PM Lew Menezes RN 2. Non-Specific Active Suicidal Thoughts (Past 1 Month) No 09/14/2024 7:41 PM Lew Menezes, [place] 6. Suicidal Behavior (Lifetime) No 09/14/2024 7:41 PM Lew Menezes RN documented as of this encounter Plan of Treatment Upcoming Encounters Date Type Department Care Team (Late st Contact Info) Description 10/16/2025 1:15 PM EST Appointment [address] [address] Isaura Barney NP [address] [place] [address] [email or web address] 03/16/2026 9:45 AM EDT Office Visit CD Pulmonary, Allergy and Critical Care Medicine 10 [place] [address] Rosendo Salinas MD, MS 10 [facility] 2nd [place] [address] [email or web address] documented as of this encounter Visit Diagnoses Not on filedocumented in this encounter Care Teams Chlorine Cells Operator Relationship Specialty Start Date End Date Isaura Barney NP [address] [place] [address] [email or web address] PCP - General 02/21/22 Augustine Carroll MD [address] [place] [address] [address] [place] [address] [email or web address] Primary Oncologist Medical Oncology 02/23/22 Aimee Wall CNP 30 [place] [address] [email or web address] Nurse Practitioner Oncology 05/17/22 Tree Lay DO [address] [place] [address] [email or web address] Hematology and Oncology 05/17/22 Lynne Ferrer NP [address] [place] [address] [email or web address] Nurse Practitioner Oncology 05/17/22 documented as of this encounter Additional Source Comments The information contained in this document represents components of the legal health record. It is not the complete legal health record.[facility]
--- OUTSIDE RECORDS SUMMARY | 2025-06-29 10:50 | XMS_ITS | Encounter Summary ---
Author Organization [facility] Address [address] [place] [address] [place] [address] Phone Care Team Providers Care Bad Work Gatherer Name Role Phone Isaura Barney EXCHANGE CLERK Primary Care Provider [phone] Augustine Carroll MD Unavailable Aimee Wall CNP Unavailable Tree Lay DO Unavailable Lynne Ferrer EXCHANGE CLERK Unavailable [phone] Encounter Details Date Type Department Care Team (Late st Contact Info) Description 06/11/2024 Procedure Pass [facility], Ct [facility] - [facility] 30 [place] [address] Social History Tobacco Use Types Packs/Day Years [...] as food, clothing, or medical care? No 08/05/2023 In the past 12 months have y ou been in a relationship with a person who hurts, threatens, or tries to control you? No 08/05/2023 Are you denied basic needs s uch as food, clothing, or medical care? No 08/05/2023 In the past 12 months have y ou been in a relationship with a person who hurts, threatens, or tries to control you? 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 file Not on file documented as of this encounter Plan of Treatment Upcoming Encounters Date Type Department Care Team (Late st Contact Info) Description 10/16/2025 1:15 PM EST Appointment [address] [address] Isaura Barney NP [address] [place] [address] [email or web address] 03/16/2026 9:45 AM EDT Office Visit [facility] Pulmonary, Allergy and Critical Care Medicine 10 [facility] [place] [address] Rosendo Salinas MD, MS 10 [facility] 2nd [place] [address] documented as of this encounter Visit Diagnoses Not on filedocumented in this encounter Care Teams Bad Work Gatherer Relationship Specialty Start Date End Date Isaura Barney NP [address] [place] [address] [email or web address] PCP - General 02/21/22 Augustine Carroll MD [address] [place] [address] [address] [place] [address] [email or web address] Primary Oncologist Medical Oncology 02/23/22 Aimee Wall CNP 30 [place] [address] [email or web address] Nurse Practitioner Oncology 05/17/22 Tree Lay DO 30 [place] [address] [email or web address] Hematology and Oncology 05/17/22 Lynne Ferrer NP [address] [place] [address] [email or web address] Nurse Practitioner Oncology 05/17/22 documented as of this encounter Additional Source Comments The information contained in this document represents components of the legal health record. It is not the complete legal health record.[facility]
--- OUTSIDE RECORDS SUMMARY | 2025-06-29 10:50 | XMS_ITS | Encounter Summary ---
Author Organization [facility] Address [address] [place] [address] [place] [address] Phone Care Team Providers Care Sweet Goods Machine Operator Name Role Phone Isaura Barney FUNERAL HOME MAKEUP ARTIST Primary Care Provider Augustine Carroll MD Unavailable Radhika Penn RN Unavailable Aimee Wall MORTGAGE BANKER Unavailable Tree Lay DO Unavailable [phone] Lynne Ferrer FUNERAL HOME MAKEUP ARTIST Unavailable [phone] Brooke Tijerina FORENSIC ACCOUNTANT Unavailable susie [email or web address] Encounter Details Date Type Department Care Team (Late st Contact Info) Description 07/28/2022 Procedure Pass [facility], Ct Scan - [address] [id number] Social History Tobacco Use Types Packs/Day Years [...] Date 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 Not on file documented as of this encounter Plan of Treatment Upcoming Encounters Date Type Department Care Team (Late st Contact Info) Description 10/16/2025 1:15 PM EST Appointment [facility], Bone Density - [facility] [address] [place] [address] Isaura Barney NP [address] [place] [address] [email or web address] 03/16/2026 9:45 AM EDT Office Visit CD Pulmonary, Allergy and Critical Care Medicine [address] [place] [address] [place] [address] Rosendo Salinas MD, MS [address] [address] [email or web address] documented as of this encounter Visit Diagnoses Not on filedocumented in this encounter Additional Health Concerns Infection Onset Date Last Indicated Resolved Time CoV-Risk 09/13/2022 09/13/2022 09/24/2022 1:22 AM EST documented as of this encounter Care Teams Sweet Goods Machine Operator Relationship Specialty Start Date End Date Isaura Barney NP [address] [place] [address] [email or web address] PCP - General 02/21/22 Augustine Carroll MD [address] [place] [address] [address] [place] [address] [email or web address] Primary Oncologist Medical Oncology 02/23/22 Radhika Penn, RN 10 [place] [address] PHCM Planer Setter 11/09/21 06/03/23 Aimee Wall CNP [address] [place] [address] Nurse Practitioner Oncology 05/17/22 Tree Lay DO 30 [place] [address] [email or web address] Hematology and Oncology 05/17/22 Lynne Ferrer NP [address] [place] [address] Nurse Practitioner Oncology 05/17/22 Brooke Tijerina LCSW 10 [place] [address] PHCM Conference Coordinator 03/16/23 03/26/23 documented as of this encounter Additional Source Comments The information contained in this document represents components of the legal health record. It is not the complete legal health record.[facility]
--- OUTSIDE RECORDS SUMMARY | 2025-06-29 10:50 | XMS_ITS | Encounter Summary ---
Author Organization [facility] Address [address] [place] [address] [place] [address] Phone Care Team Providers Care Personal Lines Account Manager Name Role Phone Isaura Barney BLADDER BLOWER Unavailable [phone] Isaura Barney BLADDER BLOWER Primary Care Provider Abilio Irizarry MD Unavailable Radhika Penn RN Unavailable Radhika Penn RN Unavailable Isaura Barney BLADDER BLOWER Primary Care Provider Augustine Carroll MD Unavailable Radhika Penn RN Unavailable Aimee Wall GAS PLANT OPERATOR Unavailable Tree Lay DO Unavailable Lynne Ferrer BLADDER BLOWER Unavailable [phone] Brooke Tijerina ASSISTANT MANAGER Unavailable susie Encounter Details Date Type Department Care Team ([facility] st Contact Info) Description 06/19/2019 Procedure Pass [facility] Endoscopy Admitting Dept Virtual Department [address] [place] [address] Social History Tobacco Use Types Packs/Day Years Used Date Smoking Tobacco: Never Smokeless Tobacco: Never Alcohol Use Standard Drinks/Week Comments No 0 (1 standard drink = 0.6 oz pur e alcohol) Comments Unknown Sex and Gender Information Value Date Recorded Sex Assigned at Female 03/31/2018 7:58 PM EDT Legal Sex Female 9:41 AM EDT Gender Identity Female 03/31/2018 7:58 PM EDT Sexual Orientation Choose not to disclose 2022 11:26 AM EST 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 Pulmonary, Allergy and Critical Care Medicine [address] [place] [address] [place] [address] Rosendo Salinas MD, MS 10 [facility] 2nd [place] [address] documented as of this encounter Visit Diagnoses Not on filedocumented in this encounter Additional Health Concerns Infection Onset Date Last Indicated Resolved Time CoV-Risk 03/10/2020 03/11/2020 03/24/2020 1:24 AM EDT CoV-Risk 09/13/2022 09/13/2022 09/24/2022 1:22 AM EST documented as of this encounter Care Teams Personal Lines Account Manager Relationship Specialty Start Date End Date Isaura Barney NP [address] [place] [address] [email or web address] PCP - General 06/19/19 02/20/22 Isaura Barney NP [address] [place] [address] [email or web address] PCP - General 02/21/22 Isaura Barney NP [address] [place] [address] [email or web address] 07/25/18 02/20/22 Abilio Irizarry MD [address] [place] [address] [email or web address] Primary Oncologist Hematology and Oncology 01/05/21 02/20/22 Radhika Penn RN [address] [place] [address] PHCM Defect Cutter 05/02/21 10/25/21 Radhika Penn RN [address] [place] [address] PHCM Defect Cutter 11/09/21 03/14/22 Augustine Carroll MD [address] [place] [address] [email or web address] Primary Oncologist Medical Oncology 02/23/22 Radhika Penn RN [address] [place] [address] PHCM Defect Cutter 11/09/21 06/03/23 Aimee Wall CNP [address] [place] [address] [email or web address] Nurse Practitioner Oncology 05/17/22 Tree Lay DO [address] [place] [address] [email or web address] Hematology and Oncology 05/17/22 Lynne Ferrer NP [address] [place] [address] [email or web address] Nurse Practitioner Oncology 05/17/22 Brooke Tijerina, ASSISTANT MANAGER [address] [place] [address] [email or web address] PHCM End Frazer 03/16/23 03/26/23 documented as of this encounter Additional Source Comments The information contained in this document represents components of the legal health record. It is not the complete legal health record.[facility]
--- OUTSIDE RECORDS SUMMARY | 2025-06-29 10:51 | XMS_ITS | Encounter Summary ---
Author Organization [facility] Address [address] [place] [address] [place] [address] Phone Care Team Providers Care Environmental Journalist Name Role Phone Isaura Barney APPLICATION PERFORMANCE ENGINEER Unavailable [phone] Isaura Barney APPLICATION PERFORMANCE ENGINEER Primary Care Provider Abilio Irizarry MD Unavailable Radhika Penn RN Unavailable Radhika Penn RN Unavailable Isaura Barney APPLICATION PERFORMANCE ENGINEER Primary Care Provider Augustine Carroll MD Unavailable [phone] Radhika Penn RN Unavailable Aimee Wall STONE PRODUCT FABRICATOR Unavailable Tree Lay DO Unavailable Lynne Ferrer APPLICATION PERFORMANCE ENGINEER Unavailable [phone] Brooke Tijerina MED DIR Unavailable susie Encounter Details Date Type Department Care Team (Late st Contact Info) Description 04/25/2021 Procedure Pass [facility], Ct Scan - [address] [address] Social History Tobacco Use Types Packs/Day Years [...] Date 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 Wish to be (Past 1 Month) No 04/25/2021 6:55 PM EDT Cecilia Cook RN 2. Non-Specific Active Suicidal Thoughts (Past 1 Month) No 04/25/2021 6:55 PM EDT Cecilia Cook RN 6. Suicidal Behavior (Lifetime) No 04/25/2021 6:55 PM EDT Cecilia Cook RN documented as of this encounter Plan of Treatment Upcoming Encounters Date Type Department Care Team (Late st Contact Info) Description 10/16/2025 1:15 PM EST Appointment [facility], Bone Density - [address] [address] Isaura Barney NP [address] [place] [address] [email or web address] 03/16/2026 9:45 AM EDT Office Visit [facility] Pulmonary, Allergy and Critical Care Medicine 10 [facility] [place] [address] Rosendo Salinas MD, MS [address] [address] [email or web address] documented as of this encounter Visit Diagnoses Not on filedocumented in this encounter Additional Health Concerns Infection Onset Date Last Indicated Resolved Time CoV-Risk 09/13/2022 09/13/2022 09/24/2022 1:22 AM EST documented as of this encounter Care Teams Environmental Journalist Relationship Specialty Start Date End Date Isaura Barney NP [address] [place] [address] [email or web address] PCP - General 06/19/19 02/20/22 Isaura Barney NP [address] [place] [address] [email or web address] PCP - General 02/21/22 Isaura Barney NP [address] [place] [address] [email or web address] 07/25/18 02/20/22 Abilio Irizarry MD [address] [place] [address] [email or web address] Primary Oncologist Hematology and Oncology 01/05/21 02/20/22 Radhika Penn RN [address] [place] [address] [email or web address] PHCM Lunchroom Supervisor 05/02/21 10/25/21 Radhika Penn RN [address] [place] [address] PHCM Lunchroom Supervisor 11/09/21 03/14/22 Augustine Carroll MD [address] [place] [address] [address] [place] [address] [email or web address] Primary Oncologist Medical Oncology 02/23/22 Radhika Penn, RN [address] [place] [address] [email or web address] PHCM Lunchroom Supervisor 11/09/21 06/03/23 Aimee Wall CNP 30 [place] [address] [email or web address] Nurse Practitioner Oncology 05/17/22 Tree Lay DO 30 [place] [address] [email or web address] Hematology and Oncology 05/17/22 Lynne Ferrer NP [address] [place] [address] [email or web address] Nurse Practitioner Oncology 05/17/22 Brooke Tijerina, CINTIA [address] [place] [address] [email or web address] PHCM Elementary School Director 03/16/23 03/26/23 documented as of this encounter Additional Source Comments The information contained in this document represents components of the legal health record. It is not the complete legal health record.[facility]
--- OUTSIDE RECORDS SUMMARY | 2025-06-29 10:51 | XMS_ITS | Encounter Summary ---
Author Organization [facility] Address [address] [place] [address] [place] [address] Phone Care Team Providers Care Steamblaster Name Role Phone Isaura Barney INVESTIGATION DIVISION LIEUTENANT Unavailable [phone] Isaura Barney INVESTIGATION DIVISION LIEUTENANT Primary Care Provider Abilio Irizarry MD Unavailable Radhika Penn RN Unavailable Radhika Penn RN Unavailable Isaura Barney INVESTIGATION DIVISION LIEUTENANT Primary Care Provider Augustine Carroll MD Unavailable Radhika Penn RN Unavailable Aimee Wall UTILITY DRIVER Unavailable Tree Lay DO Unavailable [phone] Lynne Ferrer INVESTIGATION DIVISION LIEUTENANT Unavailable [phone] Brooke Tijerina DATA REPORT ANALYST Unavailable susie Encounter Details Date Type Department Care Team (Latest Contact Info) Description 06/24/2019 Transcribe Orders Virtual Department [address] [place] [address] Gabe Blanco MD [address] [place] [address] [email or web address] [email or web address] pain (Primary Dx) Social History Tobacco Use Types [...] 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 file Not on file documented as of this encounter Plan of Treatment Upcoming Encounters Date Type Department Care Team (Late st Contact Info) Description 10/16/2025 1:15 PM EST Appointment [facility], Bone [facility] [address] [place] [address] Isaura Barney NP [address] [place] [address] [email or web address] 03/16/2026 9:45 AM EDT Office Visit [facility] Pulmonary, Allergy and Critical Care Medicine [address] [place] [address] [place] [address] Rosendo Salinas MD, MS [address] [address] documented as of this encounter Visit Diagnoses Diagnosis Neck pain- Primary Cervicalgia documented in this encounter Additional Health Concerns Infection Onset Date Last Indicated Resolved Time CoV-Risk 03/10/2020 03/11/2020 03/24/2020 1:24 AM EDT CoV-Risk 09/13/2022 09/13/2022 09/24/2022 1:22 AM EST documented as of this encounter Care Teams Steamblaster Relationship Specialty Start Date End Date Isaura Barney NP [address] [place] [address] [email or web address] PCP - General 06/19/19 02/20/22 Isaura Barney NP [address] [place] [address] [email or web address] PCP - General 02/21/22 Isaura Barney NP [address] [place] [address] [email or web address] 07/25/18 02/20/22 Abilio Irizarry MD [address] [place] [address] [email or web address] Primary Oncologist Hematology and Oncology 01/05/21 02/20/22 Radhika Penn RN [address] [place] [address] PHCM Speech Language Therapist 05/02/21 10/25/21 Radhika Penn RN [address] [place] [address] PHC Speech Language Therapist 11/09/21 03/14/22 Augustine Carroll MD [address] [place] [address] [email or web address] Primary Oncologist Medical Oncology 02/23/22 Radhika Penn RN [address] [place] [address] PHCM Speech Language Therapist 11/09/21 06/03/23 Aimee Wall CNP [address] [place] [address] Nurse Practitioner Oncology 05/17/22 Tree Lay DO [address] [place] [address] [email or web address] Hematology and Oncology 05/17/22 Lynne Ferrer NP [address] [place] [address] Nurse Practitioner Oncology 05/17/22 Brooke Tijerina, DATA REPORT ANALYST [address] [place] [address] [email or web address] PHCM Buhr Dresser 03/16/23 03/26/23 documented as of this encounter Additional Source Comments The information contained in this document represents components of the legal health record. It is not the complete legal health record.[facility]
--- OUTSIDE RECORDS SUMMARY | 2025-06-29 10:51 | XMS_ITS | Encounter Summary ---
Author Organization [facility] Address [address] [place] [address] [place] [address] Phone Care Team Providers Care Chip Mixing Machine Operator Name Role Phone Isaura Barney CHARGE AIDE Unavailable [phone] Isaura Barney CHARGE AIDE Primary Care Provider Abilio Irizarry MD Unavailable Radhika Penn RN Unavailable Radhika Penn RN Unavailable Isaura Barney CHARGE AIDE Primary Care Provider Augustine Carroll MD Unavailable Radhika Penn RN Unavailable Aimee Wall SUPERVISOR STERILE PROCESSING Unavailable Tree Lay DO Unavailable Lynne Ferrer CHARGE AIDE Unavailable [phone] Brooke Tijerina GLAZE MIXER Unavailable susie Encounter Details Date Type Department Care Team (Late st Contact Info) Description 02/14/2021 Procedure Pass [facility], Ct Scan - [address] [address] Social History Tobacco Use Types Packs/Day Years [...] Date 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 Not on file documented as of this encounter Plan of Treatment Upcoming Encounters Date Type Department Care Team (Late st Contact Info) Description 10/16/2025 1:15 PM EST Appointment [facility], Bone Density - [address] [address] Isaura Barney NP [address] [place] [address] [email or web address] 03/16/2026 9:45 AM EDT Office [place] [facility] [place], Allergy and Critical Care Medicine [address] [place] [address] Rosendo Salinas MD, MS 10 [facility] 2nd [place] [address] documented as of this encounter Visit Diagnoses Not on filedocumented in this encounter Additional Health Concerns Infection Onset Date Last Indicated Resolved Time CoV-Risk 09/13/2022 09/13/2022 09/24/2022 1:22 AM EST documented as of this encounter Care Teams Chip Mixing Machine Operator Relationship Specialty Start Date End Date Isaura Barney NP [address] [place] [address] [email or web address] PCP - General 06/19/19 02/20/22 Isaura Barney NP [address] [place] [address] [email or web address] PCP - General 02/21/22 Isaura Barney NP [address] [place] [address] [email or web address] 07/25/18 02/20/22 Abilio Irizarry MD [address] [place] [address] [email or web address] Primary Oncologist Hematology and Oncology 01/05/21 02/20/22 Radhika Penn RN [address] [place] [address] PHCM Rotor Plate Washer 05/02/21 10/25/21 Radhika Penn RN [address] [place] [address] PHCM Rotor Plate Washer 11/09/21 03/14/22 Augustine Carroll MD [address] [place] [address] [email or web address] Primary Oncologist Medical Oncology 02/23/22 Radhika Penn RN [address] [place] [address] PHCM Rotor Plate Washer 11/09/21 06/03/23 Aimee Wall CNP [address] [place] [address] [email or web address] Nurse Practitioner Oncology 05/17/22 Tree Lay DO [address] [place] [address] [email or web address] Hematology and Oncology 05/17/22 Lynne Ferrer NP [address] [place] [address] [email or web address] Nurse Practitioner Oncology 05/17/22 Brooke Tijerina, GLAZE MIXER [address] [place] [address] [email or web address] [email or web address] PHCM Traffic Division Commanding Officer 03/16/23 03/26/23 documented as of this encounter Additional Source Comments The information contained in this document represents components of the legal health record. It is not the complete legal health record.[facility]
--- OUTSIDE RECORDS SUMMARY | 2025-06-29 10:51 | XMS_ITS | Encounter Summary ---
Author Organization [facility] Address [address] [place] [address] [place] [address] Phone Care Team Providers Care Qc Lab Technician Name Role Phone Isaura Barney CLIENT ANALYST Unavailable [phone] Isaura Barney CLIENT ANALYST Primary Care Provider Abilio Irizarry MD Unavailable Radhika Penn RN Unavailable Radhika Penn RN Unavailable Isaura Barney CLIENT ANALYST Primary Care Provider Augustine Carroll MD Unavailable Radhika Penn RN Unavailable Aimee Wall ACCOUNTANT AUDITOR Unavailable Tree Lay DO Unavailable Lynne Ferrer CLIENT ANALYST Unavailable [phone] Brooke Tijerina PORTFOLIO CONSULTANT Unavailable susie Encounter Details Date Type Department Care Team (Late st Contact Info) Description 06/24/2019 Procedure Pass [facility], [address] [address] Social History Tobacco Use Types Packs/Day Years [...] 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 Not on file documented as of this encounter Plan of Treatment Upcoming Encounters Date Type Department Care Team (Late st Contact Info) Description 10/16/2025 1:15 PM EST Appointment [facility], [address] [address] Isaura Barney NP [address] [place] [address] [email or web address] 03/16/2026 9:45 AM EDT Office [place] [facility] [place] Pulmonary, Allergy and Critical Care Medicine [address] [place] [address] [place] [address] Rosendo Salinas MD, MS 10 [facility] 2nd [place] [address] documented as of this encounter Visit Diagnoses Not on filedocumented in this encounter Additional Health Concerns Infection Onset Date Last Indicated Resolved Time CoV-Risk 03/10/2020 03/11/2020 03/24/2020 1:24 AM EDT CoV-Risk 09/13/2022 09/13/2022 09/24/2022 1:22 AM EST documented as of this encounter Care Teams Qc Lab Technician Relationship Specialty Start Date End Date Isaura Barney NP [address] [place] [address] [email or web address] PCP - General 06/19/19 02/20/22 Isaura Barney NP [address] [place] [address] [email or web address] PCP - General 02/21/22 Isaura Barney NP [address] [place] [address] [email or web address] 07/25/18 02/20/22 Abilio Irizarry MD [address] [place] [address] [email or web address] Primary Oncologist Hematology and Oncology 01/05/21 02/20/22 Radhika Penn RN [address] [place] [address] PHC Store Group Manager 05/02/21 10/25/21 Radhika Penn RN [address] [place] [address] PHC Store Group Manager 11/09/21 03/14/22 Augustine Carroll MD [address] [place] [address] [email or web address] [email or web address] Primary Oncologist Medical Oncology 02/23/22 Radhika Penn RN [address] [place] [address] PHCM Store Group Manager 11/09/21 06/03/23 Aimee Wall CNP [address] [place] [address] [email or web address] Nurse Practitioner Oncology 05/17/22 Tree Lay DO [address] [place] [address] [email or web address] Hematology and Oncology 05/17/22 Lynne Ferrer NP [address] [place] [address] [email or web address] Nurse Practitioner Oncology 05/17/22 Brooke Tijerina, PORTFOLIO CONSULTANT [address] [place] [address] [email or web address] PHCM Production Recovery Operator 03/16/23 03/26/23 documented as of this encounter Additional Source Comments The information contained in this document represents components of the legal health record. It is not the complete legal health record.[facility]
--- OUTSIDE RECORDS SUMMARY | 2025-06-29 10:51 | XMS_ITS | Encounter Summary ---
Author Organization [facility] Address [address] [place] [address] [place] [address] Phone Care Team Providers Care Diamond Die Maker Name Role Phone Chema Peterson MD Primary Care Provider Chema Peterson MD Unavailable [phone] Isaura Barney MECHANICAL OPERATOR Unavailable [phone] Isaura Barney MECHANICAL OPERATOR Primary Care Provider [phone] Abilio Irizarry MD Unavailable Radhika Penn RN Unavailable Radhika Penn RN Unavailable Isaura Barney MECHANICAL OPERATOR Primary Care Provider [phone] Augustine Carroll MD Unavailable Radhika Penn RN Unavailable Aimee Wall CNP Unavailable Tree Lay DO Unavailable [phone] Lynne Ferrer MECHANICAL OPERATOR Unavailable [phone] Brooke Tijerina PATIENT SUPPORT SPECIALIST Unavailable [email or web address] Encounter Details Date Type Department Care Team (Late st Contact Info) Description 09/27/2017 Transcribe Orders [facility] [address] [place] [address] Iasura Barney NP [address] [place] [address] [email or web address] Social History Tobacco Use Types Packs/Day Years Used Date Smoking Tobacco: Never Assessed Comments Unknown Sex and Gender Information Value Date Recorded Sex Assigned at Female 03/31/2018 7:58 PM EDT Legal Sex Female 9:41 AM EDT Gender Identity Female 03/31/2018 7:58 PM EDT Sexual Orientation Choose not to disclose 2022 11:26 AM EST documented as of this encounter Plan of Treatment Upcoming Encounters Date Type Department Care Team (Late st Contact Info) Description 10/16/2025 1:15 PM EST Appointment [facility], Bone Density [facility] [address] [place] [address] Isaura Barney NP [address] [place] [address] [email or web address] 03/16/2026 9:45 AM EDT Office Visit [facility] Pulmonary, Allergy and Critical Care Medicine [address] [place] [address] [place] [address] Rosendo Salinas MD, MS 10 [facility] 2nd [place] [address] [email or web address] documented as of this encounter Visit Diagnoses Not on filedocumented in this encounter Additional Health Concerns Infection Onset Date Last Indicated Resolved Time CoV-Risk 03/10/2020 03/11/2020 03/24/2020 1:24 AM EDT CoV-Risk 09/13/2022 09/13/2022 09/24/2022 1:22 AM EST documented as of this encounter Care Teams Diamond Die Maker Relationship Specialty Start Date End Date Chema Peterson MD [email or web address] PCP - General Internal Medicine 12/29/16 06/18/19 Isaura Barney NP [address] [place] [address] [email or web address] PCP - General 06/19/19 02/20/22 Isaura Barney NP [address] [place] [address] [email or web address] PCP - General 02/21/22 Chema Peterson MD [address] [place] [address] [email or web address] Assigned Provider 06/22/18 07/21/18 Isaura Barney NP [address] [place] [address] [email or web address] 07/25/18 02/20/22 Abilio Irizarry MD [address] [place] [address] [email or web address] Primary Oncologist Hematology and Oncology 01/05/21 02/20/22 Radhika Penn RN [address] [place] [address] [email or web address] PHCM Manager Sap 05/02/21 10/25/21 Radhika Penn RN [address] [place] [address] [email or web address] PHCM Manager Sap 11/09/21 03/14/22 Augustine Carroll MD [address] [place] [address] [address] [place] [address] [email or web address] Primary Oncologist Medical Oncology 02/23/22 Radhika Penn, [place] [address] [place] [address] [email or web address] PHCM Manager Sap 11/09/21 06/03/23 Aimee Wall CNP [address] [place] [address] [email or web address] Nurse Practitioner Oncology 05/17/22 Tree Lay DO [address] [place] [address] [email or web address] Hematology and Oncology 05/17/22 Lynne Ferrer NP [address] [place] [address] [email or web address] Nurse Practitioner Oncology 05/17/22 Brooke Tijerina LCSW [address] [place] [address] [email or web address] PHCM Appraiser [employer] 03/16/23 03/26/23 documented as of this encounter Additional Source Comments The information contained in this document represents components of the legal health record. It is not the complete legal health record.[facility]
--- OUTSIDE RECORDS SUMMARY | 2025-06-29 10:51 | XMS_ITS | Encounter Summary ---
Author Organization [facility] Address [address] [place] [address] [place] [address] Phone Care Team Providers Care Anatomy Professor Name Role Phone Radhika Penn RN Unavailable Isaura Barney FLAT KNITTER Primary Care Provider [phone] Augustine Carroll MD Unavailable Radhika Penn RN Unavailable Aimee Wall INWARD TOLL OPERATOR Unavailable Tree Lay DO Unavailable [phone] Lynne Ferrer FLAT KNITTER Unavailable [phone] Brooke Tijerina COMMUNICATIONS PROFESSIONAL Unavailable susie Encounter Details Date Type Department Care Team (Late st Contact Info) Description 02/23/2022 Procedure Pass [facility], Ct Scan - [address] [id number] Social History Tobacco Use Types Packs/Day Years [...] Date 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 Not on file documented as of this encounter Plan of Treatment Upcoming Encounters Date Type Department Care Team (Late st Contact Info) Description 10/16/2025 1:15 PM EST Appointment [facility], Bone Density - [facility] [address] [place] [address] Isaura Barney NP [address] [place] [address] [email or web address] 03/16/2026 9:45 AM EDT Office Visit [facility] Pulmonary, Allergy and Critical Care Medicine [address] [place] [address] Rosendo Salinas MD, MS [address] [address] [email or web address] documented as of this encounter Visit Diagnoses Not on filedocumented in this encounter Additional Health Concerns Infection Onset Date Last Indicated Resolved Time CoV-Risk 09/13/2022 09/13/2022 09/24/2022 1:22 AM EST documented as of this encounter Care Teams Anatomy Professor Relationship Specialty Start Date End Date Isaura Barney NP [address] [place] [address] [email or web address] PCP - General 02/21/22 Radhika Penn RN [address] [place] [address] [email or web address] PHCM Electron Beam Photo Mask Technician 11/09/21 03/14/22 Augustine Carroll MD [address] [place] [address] [address] [place] [address] [email or web address] Primary Oncologist Medical Oncology 02/23/22 Radhika Penn, RN [address] [place] [address] [email or web address] PHCM Electron Beam Photo Mask Technician 11/09/21 06/03/23 Aimee Wall CNP [address] [place] [address] [email or web address] Nurse Practitioner Oncology 05/17/22 Tree Lay DO [address] [place] [address] [email or web address] Hematology and Oncology 05/17/22 Lynne Ferrer NP [address] [place] [address] [email or web address] Nurse Practitioner Oncology 05/17/22 Brooke Tijerina LCSW [address] [place] [address] [email or web address] PHCM Physics Technical Officer 03/16/23 03/26/23 documented as of this encounter Additional Source Comments The information contained in this document represents components of the legal health record. It is not the complete legal health record.[facility]
--- OUTSIDE RECORDS SUMMARY | 2025-06-29 10:51 | XMS_ITS | Encounter Summary ---
Author Organization [facility] Address [address] [place] [address] [place] [address] Phone Care Team Providers Care Wrecking Crane Engine Operator Name Role Phone Isaura Barney SHIFT LAB TECHNICIAN Primary Care Provider [phone] Augustine Carroll MD Unavailable Aimee Wall ABATTOIR MANAGER Unavailable Tree Lay DO Unavailable Lynne Ferrer SHIFT LAB TECHNICIAN Unavailable [phone] Encounter Details Date Type Department Care Team (Latest Contact Info) Description 09/04/2024 Transcribe Orders Virtual Department [address] [place] [address] Cindy Bhatt PA [address] [place] [address] [email or web address] Other spondylosis with radiculopathy, cervical region (Primary Dx) Social History Tobacco Use Types [...] 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 Not on file documented as of this encounter Plan of Treatment Upcoming Encounters Date Type Department Care Team (Late st Contact Info) Description 10/16/2025 1:15 PM EST Appointment [facility], Bone Density - [facility] [address] [place] [address] Isaura Barney NP [address] [place] [address] [email or web address] 03/16/2026 9:45 AM EDT Office Visit [facility] Pulmonary, Allergy and Critical Care Medicine [address] [place], [place] [id number] Rosendo Salinas MD, MS 10 [facility] 2nd [place] [address] [email or web address] Scheduled Orders Name Type Priority Associated Diagnoses Orde r Schedule XR Cervical Spine Imaging Routine Other spondylosis with radiculopathy, cervical region Expected: 09/04/2024, Expires: 09/04/2025 documented as of this encounter Visit Diagnoses Diagnosis Other spondylosis with radiculopathy, cervical region- Primary documented in this encounter Care Teams Wrecking Crane Engine Operator Relationship Specialty Start Date End Date Isaura Barney NP [address] [place] [address] [email or web address] PCP - General 02/21/22 Augustine Carroll MD [address] [place], [place] [address] [address] [place] [address] [email or web address] Primary Oncologist Medical Oncology 02/23/22 Aimee Wall CNP [address] [place] [address] [email or web address] Nurse Practitioner Oncology 05/17/22 Tree Lay DO [address] [place] [address] [email or web address] Hematology and Oncology 05/17/22 Lynne Ferrer NP [address] [place] [address] [email or web address] Nurse Practitioner Oncology 05/17/22 documented as of this encounter Additional Source Comments The information contained in this document represents components of the legal health record. It is not the complete legal health record.[facility]
--- OUTSIDE RECORDS SUMMARY | 2025-06-29 10:51 | XMS_ITS | Clinical Summary ---
Author Organization [facility] Address [address] [facility] [address] [place] [address] Phone Care Team Providers Care Junior Programmer Name Role Phone Isaura Barney REGIONAL SAFETY MANAGER Primary Care Provider [phone] Allergies Active Allergy Reactions Criticality Noted Date [...] aturia with minimal change lesion 11/10/2021 Immunizations Immunization Administration Dates Next Due Influenza, Quadrivalent, Preservative [...] Comments Breast Cancer Screening 1960 Pneumococcal Vaccine: 50+ Years (1 of 2 - PCV) 1977 Colorectal Cancer Screening: Annual FOBT 2007 Colorectal Cancer Screening: Colonoscopy 2007 Colorectal Cancer Screening: Sigmoidoscopy 2007 Influenza Vaccine (#1) 2025 0, 07/23/2019 Hepatitis B Vaccine Aged Out No longe r eligible based on patient's age to complete this topic [place] Care Teams Junior Programmer Relationship Specialty Start Date End Date Isaura Barney NP [address] [place] [address] PCP - General Nurse Practitioner 10/03/21
--- OUTSIDE RECORDS SUMMARY | 2025-06-29 10:51 | XMS_ITS | Encounter Summary ---
Author Organization [facility] Address [address] [place] [address] [place] [address] Phone Care Team Providers Care Civil Draftsman Name Role Phone Isaura Barney QUALITY CONTROL ASSOCIATE Unavailable [phone] Isaura Barney QUALITY CONTROL ASSOCIATE Primary Care Provider Abilio Irizarry MD Unavailable Radhika Penn RN Unavailable Radhika Penn RN Unavailable Isaura Barney QUALITY CONTROL ASSOCIATE Primary Care Provider [phone] Augustine Carroll MD Unavailable Radhika Penn RN Unavailable Aimee Wall UPWARD BOUND DIRECTOR Unavailable Tree Lay DO Unavailable Lynne Ferrer QUALITY CONTROL ASSOCIATE Unavailable [phone] Brooke Tijerina DIRECTOR HEALTH Unavailable susie Reason for Referral * MRI/CAT Scan - Closed Specialty Diagnoses / Procedures Referred By Contac t Referred To Contact Radiology Diagnoses Neck pain H/O lymphoma Procedures MRI Cervical Spine MRI Cervical Spine Gabe Blanco MD Phone: tel: fax: mailto:[email or web address] Referral ID Status Reason Start Date Expiration Date Visits Re quested Visits Authorized [id number] Closed 06/24/2019 08/23/2019 1 1 Encounter Details Date Type Department Care Team ([facility] Contact Info) Description 06/24/2019 Ancillary Orders Virtual Department [address] [place] [address] Gabe Blanco MD [address] [place] [address] [email or web address] Neck pain; H/O lymphoma Social History Tobacco Use Types Packs/Day Years [...] Job 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 Not on file documented as of this encounter Plan of Treatment Upcoming Encounters Date Type Department Care Team ([facility] Contact Info) Description 10/16/2025 1:15 PM EST Appointment [facility], Bone [facility] [address] [place] [address] Isaura Barney NP [address] [place] [address] [email or web address] 03/16/2026 9:45 AM EDT Office Visit [facility] Pulmonary, Allergy and Critical Care Medicine 10 [facility] [place] [address] [place] [address] Rosendo Salinas MD, MS [address] [address] documented as of this encounter Results * MRI CERVICAL SPINE (NEURO) FOCUS WITHOUT CONTRAST (07/05/2019 3:00 PM EST) Anatomical Region Laterality Modality C-spine Magnetic Resonan ce 07/05/2019 6:55 PM EST Impressions 07/05/2019 7:10 PM EST Mild degenerative changes. Mild canal stenosis at C5-C6 and C6-C7. Mild neuroforaminal stenosis on the left at C4-C5 and bilaterally at C5-C6 (greater on the left side). POS - [id number] Narrative 07/05/2019 7:10 PM EST EXAM: MRI CERVICAL SPINE (NEURO) FOCUS WITHOUT CONTRAST COMPARISON: None TECHNIQUE: Exam performed on a 1.5 Mee high-field MRI scanner. Sagittal T1, T2 and STIR, axial T2* gradient echo and 3-D bright fluid sequences were obtained. HISTORY: + NECK PAIN [SIGN/SX] NECK AND BILATERAL UPPER EXTREMITY PAIN WITH HISTORY OF LYMPHOMA. R/O DEGENERATVE CHANGES FINDINGS: ALIGNMENT: Anatomic alignment is maintained. No anterior or posterior subluxations. VERTEBRAL BODIES: Vertebral body heights are maintained. Bone marrow signal pattern is within normal limits. INTERVERTEBRAL DISCS: Mild loss of height of C5-C6 and C6-C7 discs.. POSTERIOR FOSSA/SPINAL CORD: Posterior fossa structures are grossly unremarkable. Included spinal cord has normal caliber and signal characteristics. Level by level analysis yields the following: C2-C3: No significant canal or neuroforaminal stenosis. C3-C4: No significant canal or neuroforaminal stenosis. C4-C5: Tiny disc osteophyte complex eccentric to the left side contributes to mild left neuroforaminal narrowing. No significant canal or right neuroforaminal stenosis. C5-C6: Minimal disc osteophyte complex eccentric to the left side contributes to mild canal stenosis and mild bilateral neuroforaminal narrowing, greater on the left side. C6-C7: Minimal disc osteophyte complex contributes to mild canal stenosis. No significant neuroforaminal stenosis. C7-T1: No significant canal or neuroforaminal stenosis. T1-T2: No significant canal or neuroforaminal stenosis. OTHERS:Prevertebral and posterior paraspinal soft tissues are unremarkable. Procedure Note Hansel Farr MD - 07/05/2019 EXAM: MRI CERVICAL SPINE (NEURO) FOCUS WITHOUT CONTRAST COMPARISON: None TECHNIQUE: Exam performed on a 1.5 Mee high-field MRI scanner.Sagittal T1, T2 and STIR, axial T2* gradient echo and 3-D bright fluidsequences were obtained. HISTORY: + NECK PAIN [SIGN/SX] NECK AND BILATERAL UPPER EXTREMITY PAIN WITH HISTORY OF LYMPHOMA. R/ODEGENERATVE CHANGES FINDINGS: ALIGNMENT: Anatomic alignment is maintained. No anterior or posteriorsubluxations. VERTEBRAL BODIES: Vertebral body heights are maintained. Bone marrowsignal pattern is within normal limits. INTERVERTEBRAL DISCS: Mild loss of height of C5-C6 and C6-C7 discs.. POSTERIOR FOSSA/SPINAL CORD: Posterior fossa structures are grosslyunremarkable. Included spinal cord has normal caliber and signalcharacteristics. Level by level analysis yields the following: C2-C3: No significant canal or neuroforaminal stenosis. C3-C4: No significant canal or neuroforaminal stenosis. C4-C5: Tiny disc osteophyte complex eccentric to the left side contributesto mild left neuroforaminal narrowing. No significant canal or rightneuroforaminal stenosis. C5-C6: Minimal disc osteophyte complex eccentric to the left sidecontributes to mild canal stenosis and mild bilateral neuroforaminalnarrowing, greater on the left side. C6-C7: Minimal disc osteophyte complex contributes to mild canal stenosis.No significant neuroforaminal stenosis. C7-T1: No significant canal or neuroforaminal stenosis. T1-T2: No significant canal or neuroforaminal stenosis. OTHERS:Prevertebral and posterior paraspinal soft tissues areunremarkable. IMPRESSION: Mild degenerative changes. Mild canal stenosis at C5-C6 and C6-C7. Mildneuroforaminal stenosis on the left at C4-C5 and bilaterally at C5-C6(greater on the left side). POS - [id number] Gabe Blanco MD IMG MR XSPECIALTY Cha l Result documented in this encounter Visit Diagnoses Diagnosis Neck pain Cervicalgia H/O lymphoma Neck pain Cervicalgia H/O lymphoma documented in this encounter Additional Health Concerns Infection Onset Date Last Indicated Resolved Time CoV-Risk 03/10/2020 03/11/2020 03/24/2020 1:24 AM EDT CoV-Risk 09/13/2022 09/13/2022 09/24/2022 1:22 AM EST documented as of this encounter Care Teams Civil Draftsman Relationship Specialty Start Date End Date Isaura Barney NP [address] [place] [address] [email or web address] PCP - General 06/19/19 02/20/22 Isaura Barney NP [address] [place] [address] [email or web address] PCP - General 02/21/22 Isaura Barney NP [address] [place] [address] [email or web address] 07/25/18 02/20/22 Abilio Irizarry MD [address] [place] [address] [email or web address] Primary Oncologist Hematology and Oncology 01/05/21 02/20/22 Radhika Penn RN [address] [place] [address] PHCM Smt Operator 05/02/21 10/25/21 Radhika Penn RN [address] [place] [id number] [email or web address] PHCM Smt Operator 11/09/21 03/14/22 Augustine Carroll MD [address] [place] [address] [address] [place] [address] [email or web address] Primary Oncologist Medical Oncology 02/23/22 Radhika Penn, [place] [address] [place] [address] [email or web address] PHCM Smt Operator 11/09/21 06/03/23 Aimee Wall CNP [address] [place] [address] [email or web address] Nurse Practitioner Oncology 05/17/22 Tree Lay DO [address] [place] [address] [email or web address] Hematology and Oncology 05/17/22 Lynne Ferrer QUALITY CONTROL ASSOCIATE [address] [place] [address] [email or web address] Nurse Practitioner Oncology 05/17/22 Brooke Tijerina, CINTIA [address] [place] [address] [email or web address] PHCM Sludge Control Operator 03/16/23 03/26/23 documented as of this encounter Additional Source Comments The information contained in this document represents components of the legal health record. It is not the complete legal health record.[facility]
--- OUTSIDE RECORDS SUMMARY | 2025-06-29 10:51 | XMS_ITS | Encounter Summary ---
Author Organization [facility] Address [address] [place] [address] [place] [address] Phone Care Team Providers Care Tower Director Name Role Phone Isaura Barney MANAGER HIV Primary Care Provider Augustine Carroll MD Unavailable [phone] Radhika Penn RN Unavailable Aimee Wall SCRAP PREPARATION SUPERVISOR Unavailable Tree Lay DO Unavailable [phone] Lynne Ferrer MANAGER HIV Unavailable [phone] Brooke Tijerina BONUS CLERK Unavailable [email or web address] Reason for Referral * MRI/CAT Scan - Closed Specialty Diagnoses / Procedures Referred By Contac t Referred To Contact Radiology Diagnoses Left knee pain, unspecified chronicity Procedures MRI Knee (Left) Brandt Palacios MD Phone: tel: fax: mailto: Referral ID Status Reason Start Date Expiration Date Visits Re quested Visits Authorized [id number] Closed 07/27/2022 07/26/2023 1 1 Encounter Details Date Type Department Care Team (Latest Contact Info) Description 07/27/2022 Transcribe Orders [facility] Department [address] [place] [address] Brandt Palacios MD [address] [place] [address] Left knee pain, unspecified chronicity (Primary Dx) Social History Tobacco Use Types [...] Date 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 file Not on file documented as of this encounter Plan of Treatment Upcoming Encounters Date Type Department Care Team (Late st Contact Info) Description 10/16/2025 1:15 PM EST Appointment [facility], Bone Density - [address] [address] Isaura Barney NP [address] [place] [address] [email or web address] 03/16/2026 9:45 AM EDT Office Visit CD Pulmonary, Allergy and Critical Care Medicine 10 [facility] [place] [address] Rosendo Salinas MD, MS 10 [facility] 2nd [place] [address] documented as of this encounter Results * MRI KNEE WITHOUT CONTRAST (LEFT) (08/17/2022 5:10 PM EST) Anatomical Region Laterality Modality Knee Left Magnetic Resonan ce 08/17/2022 7:41 PM EST Impressions 08/17/2022 7:50 PM EST 1. Complex medial meniscal tear with peripheral displacement. 2. 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 Narrative 08/17/2022 7:50 PM EST MRI KNEE WITHOUT CONTRAST (LEFT) TECHNIQUE: Multi-sequence, multi-planar MRI of the knee without intravenous contrast. COMPARISON: XR KNEE 4 OR MORE VIEWS (LEFT) FINDINGS: Medial Compartment: Complex tearing of the posterior horn and body of the medial meniscus with peripheral displacement diffuse cartilage thinning in the medial compartment without full-thickness cartilage loss or underlying marrow edema. Lateral Compartment: Mild degenerative signal in the lateral meniscus without tear. Cartilage surface irregularity. No full-thickness chondral defect or underlying marrow edema in the lateral compartment. Patellofemoral Compartment: Full-thickness cartilage defect along the medial patellar facet with underlying marrow edema. Additional full-thickness cartilage defects in the trochlear groove with trace underlying edema. Tendons: Quadriceps, patellar, and popliteus tendons are intact. Ligaments: Cruciate ligaments are intact. Collateral ligaments are intact. Multiple distal candace-cruciate cysts. Bones: No fracture, osteonecrosis, or focal lesion. Joint: Small joint effusion. No substantial synovitis. No Linn's cyst. Procedure Note Chase Javier MD - 08/17/2022 MRI KNEE WITHOUT CONTRAST (LEFT) TECHNIQUE: Multi-sequence, multi-planar MRI of the knee withoutintravenous contrast. COMPARISON: XR KNEE 4 OR MORE VIEWS (LEFT) FINDINGS: Medial Compartment: Complex tearing of the posterior horn and body of themedial meniscus with peripheral displacement diffuse cartilage thinning inthe medial compartment without full-thickness cartilage loss or underlyingmarrow edema. Lateral Compartment: Mild degenerative signal in the lateral meniscuswithout tear. Cartilage surface irregularity. No full-thickness chondraldefect or underlying marrow edema in the lateral compartment. Patellofemoral Compartment: Full-thickness cartilage defect along themedial patellar facet with underlying marrow edema. Additionalfull-thickness cartilage defects in the trochlear groove with traceunderlying edema. Tendons: Quadriceps, patellar, and popliteus tendons are intact. Ligaments: Cruciate ligaments are intact. Collateral ligaments are intact.Multiple distal candace-cruciate cysts. Bones: No fracture, osteonecrosis, or focal lesion. Joint: Small joint effusion. No substantial synovitis. No Linn's cyst. IMPRESSION: 1. Complex medial meniscal tear with peripheral displacement. 2. Patellofemoral predominant degenerative change with bone marrow edemain the medial patellar facet and in the trochlear groove. Brandt Palacios MD IMG MR EXTREMITY Final Resul t documented in this encounter Visit Diagnoses Diagnosis Left knee pain, unspecified chronicity- Primary Left knee pain, unspecified chronicity documented in this encounter Additional Health Concerns Infection Onset Date Last Indicated Resolved Time CoV-Risk 09/13/2022 09/13/2022 09/24/2022 1:22 AM EST documented as of this encounter Care Teams Tower Director Relationship Specialty Start Date End Date Isaura Barney NP [address] [place] [address] [email or web address] PCP - General 02/21/22 Augustine Carroll MD [address] [place] [address] [address] [place] [address] [email or web address] Primary Oncologist Medical Oncology 02/23/22 Radhika Penn RN [address] [place] [address] PHCM Sleep Technologist 11/09/21 06/03/23 Aimee Wall CNP [address] [place] [address] [email or web address] Nurse Practitioner Oncology 05/17/22 Tree Lay DO [address] [place] [address] [email or web address] Hematology and Oncology 05/17/22 Lynne Ferrer NP [address] [place] [address] [email or web address] Nurse Practitioner Oncology 05/17/22 Brooke Tijerina, BONUS CLERK [address] [place] [address] [email or web address] PHCM Delivery Assistant 03/16/23 03/26/23 documented as of this encounter Additional Source Comments The information contained in this document represents components of the legal health record. It is not the complete legal health record.[facility]
--- OUTSIDE RECORDS SUMMARY | 2025-06-29 10:51 | XMS_ITS | Encounter Summary ---
Author Organization [facility] Address [address] [place] [address] [place] [address] Phone Care Team Providers Care Communication Professor Name Role Phone Isaura Barney CLOTH SANDER Primary Care Provider Augustine Carroll MD Unavailable Radhika Penn RN Unavailable Aimee Wall LAMINATION OPERATOR Unavailable Tree Lay DO Unavailable [phone] Lynne Ferrer CLOTH SANDER Unavailable [phone] Brooke Tijerina SELECT BANKER Unavailable susie Encounter Details Date Type Department Care Team (Late st Contact Info) Description 07/27/2022 Procedure Pass [address] [place] [address] Social History Tobacco Use Types Packs/Day Years [...] Info) Description 10/16/2025 1:15 PM EST Appointment [facility], Bone Density - [facility] [address] [place] [address] Isaura Barney NP [address] [place] [address] [email or web address] 03/16/2026 9:45 AM EDT Office Visit CD Pulmonary, Allergy and Critical Care Medicine [address] [place] [address] [place] [address] Rosendo Salinas MD, MS [address] [place] [address] [email or web address] documented as of this encounter Visit Diagnoses Not on filedocumented in this encounter Additional Health Concerns Infection Onset Date Last Indicated Resolved Time CoV-Risk 09/13/2022 09/13/2022 09/24/2022 1:22 AM EST documented as of this encounter Care Teams Communication Professor Relationship Specialty Start Date End Date Isaura Barney NP [address] [place] [address] [email or web address] PCP - General 02/21/22 Augustine Carroll MD [address] [place] [address] [address] [place] [address] [email or web address] Primary Oncologist Medical Oncology 02/23/22 Radhika Penn, RN [address] [place] [address] PHCM China Painter 11/09/21 06/03/23 Aimee Wall CNP [address] [place] [address] Nurse Practitioner Oncology 05/17/22 Tree Lay DO [address] [place] [address] [email or web address] Hematology and Oncology 05/17/22 Lynne Ferrer NP [address] [place] [address] Nurse Practitioner Oncology 05/17/22 Brooke Tijerina LCSW [address] [place] [address] [email or web address] PHCM International Freight Forwarder 03/16/23 03/26/23 documented as of this encounter Additional Source Comments The information contained in this document represents components of the legal health record. It is not the complete legal health record.[facility]
--- OUTSIDE RECORDS SUMMARY | 2025-06-29 10:51 | XMS_ITS | Encounter Summary ---
Author Organization [facility] Address [address] [address] [place] [address] Phone Care Team Providers Care Quality Control Lab Technician Name Role Phone Isaura Barney SHOE PLANNER Primary Care Provider Augustine Carroll MD Unavailable Radhika Penn RN Unavailable Aimee Wall NURSERY SUPERVISOR Unavailable Tree Lay DO Unavailable Lynne Ferrer SHOE PLANNER Unavailable [phone] Brooke Tijerina ASSOCIATE RELATIONS SPECIALIST Unavailable susie Encounter Details Date Type Department Care Team (Late st Contact Info) Description 09/13/2022 Procedure Pass [facility], Ct Scan - [address] [id number] Social History Tobacco Use Types Packs/Day Years [...] Date 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 Suicide Severity Rating Scale (Screener/Recent Self-Report) Question Answer Date of Assessment Author 1. Wish to be (Past 1 Month) No 09/13/2022 11:21 AM EST Olya Gusman RN 2. Non-Specific Active Suicidal Thoughts (Past 1 Month) No 09/13/2022 11:21 AM EST Olya Gusman RN 6. Suicidal Behavior (Lifetime) No 09/13/2022 11:21 AM EST Olya Gusman RN documented as of this encounter Plan of Treatment Upcoming Encounters Date Type Department Care Team (Late st Contact Info) Description 10/16/2025 1:15 PM EST Appointment [address] [address] Isaura Barney NP [address] [place] [address] [email or web address] 03/16/2026 9:45 AM EDT Office Visit CD Pulmonary, Allergy and Critical Care Medicine [address] [place] [address] [place] [address] Rosendo Salinas MD, MS 10 [facility] 2nd [place] [address] documented as of this encounter Visit Diagnoses Not on filedocumented in this encounter Additional Health Concerns Infection Onset Date Last Indicated Resolved Time CoV-Risk 09/13/2022 09/13/2022 09/24/2022 1:22 AM EST documented as of this encounter Care Teams Quality Control Lab Technician Relationship Specialty Start Date End Date Isaura Barney NP [address] [place] [address] [email or web address] PCP - General 02/21/22 Augustine Carroll MD [address] [place], [place] [address] [address] [place] [address] [email or web address] Primary Oncologist Medical Oncology 02/23/22 Radhika Penn, [place] [address] [place] [address] PHCM Wall Covering Contractor 11/09/21 06/03/23 Aimee Wall CNP [address] [place] [address] Nurse Practitioner Oncology 05/17/22 Tree Lay DO [address] [place] [address] [email or web address] Hematology and Oncology 05/17/22 Lynne Ferrer NP [address] [place] [address] Nurse Practitioner Oncology 05/17/22 Brooke Tijerina LCSW [address] [place] [address] [email or web address] PHCM Sole Leveler 03/16/23 03/26/23 documented as of this encounter Additional Source Comments The information contained in this document represents components of the legal health record. It is not the complete legal health record.[facility]
== END 2025-06-29 16:16 | disposition home or self-care (01) ==
LOC: HO.HGI 09:34
PROVIDERS: Visit Provider Internal Medicine Gastroenterology
DX: K21.9 Gastro-esophageal reflux disease without esophagitis (principal)
CPT/HCPCS: 99213